=== PATIENT | female | born 1930 | race Caucasian/White ===

== ENCOUNTER 2017-01-03 13:31 | Inpatient (IN) | payer OTHER, BC ==
[2017-01-03] MEDS ORDERED: SODIUM CHLORIDE 500 ML IV ONE (14:13)
--- NOTE | 2017-01-03 14:20 | PDOC ---
History of Present Illness - General History Source: Patient Exam Limitations: No Limitations - History of Present Illness Initial Comments: 01/03/17 15:02 Patient is a 86 year old female with a significant past medical history of HTN, CHF, ITP, CRF, Demented, who was brought by EMS to the ED with complaint of lethargy that began this morning. As per patient's daughter patient's baseline is opened eyes, alert, aware and unable to speak. As per patient's caregiver, patient is not at her baseline mental status. She reports patient has been experiencing chronic sweating, stating the patient is soaked from sweating so much. Patient is Unable to provide hx. Baseline MS - opens eyes. Denies coughing, diarrhea. Denies nausea, vomiting. Denies any other symptoms. Allergies: Donepezil HCl, Memantine HCL. Social history: No smoking. No alcohol. No illicit drugs. Surgical history: No known surgeries PMD: Dr. Zarate <Maximus Olvera - Last Filed: 01/03/17 16:00> <Bree Hernandez - Last Filed: 01/03/17 16:10> - General Chief Complaint: Altered Mental Status Stated Complaint: UNRESPONSIVE Time Seen by Provider: 01/03/17 13:56 Past History <Maximus Olvera - Last Filed: 01/03/17 16:00> - Past Medical History Cancer: Yes (Basal Cell Leg) Cardiac Disorders: Yes (Paroxysmal A. Fib) CVA: Yes CHF: Yes Dementia: Yes Diabetes: Yes Disorders: Yes (UTI) HTN: Yes Seizures: Yes Thyroid Disease: Yes - Surgical History Appendectomy: Yes - Immunization History Immunization Up to Date: Yes - Suicide/Smoking/Psychosocial Hx Smoking Status: No Smoking History: Never smoked Number of Cigarettes Smoked Daily: 0 Hx Alcohol Use: No Drug/Substance Use Hx: No Substance Use Type: None Hx Substance Use Treatment: No <Bree Hernandez - Last Filed: 01/03/17 16:10> - Past Medical History Allergies/Adverse Reactions: Allergies Allergy/AdvReac Type Severity Reaction Status Date / Time donepezil HCl [From Aricept] Allergy Mild Rash Verified 01/03/17 14:31 memantine HCl [From Namenda] Allergy Mild Hives Verified 01/03/17 14:31 Home Medications: Ambulatory Orders Acetaminophen [Acetaminophen Extra Strength] 500 mg PO Q6H PRN #0 tablet Multivitamin [Multivitamins] 1 each PO AM #0 capsule 09/11/11 Raloxifene HCl [Evista] 60 mg PO DAILY #0 tablet 09/11/11 Cyanocobalamin Vit B-12 Inj. [Vitamin B12 Injection -] 1,000 mcg IM PRN #0 vial 11/04/14 Rivastigmine Tartrate [Rivastigmine] 1.5 mg PO BID #0 capsule 11/04/14 Metoprolol Succinate [Toprol XL -] 25 mg PO BID #60 tab.sr.24h 04/03/15 Propylthiouracil 25 mg PO BID #60 tablet 04/03/15 Risperidone [Risperdal -] 0.25 mg PO DAILY tablet 04/03/15 Levetiracetam [Keppra -] 400 mg PO BID 05/17/15 Lisinopril 10 mg PO DAILY 05/17/15 Pregabalin [Lyrica -] 75 mg PO Q12H 05/17/15 Vitamin C 500 mg PO DAILY 05/01/16 Zinc Sulfate 220 mg PO DAILY 05/01/16 Review of Systems - Review of Systems Able to Perform ROS?: No Comments:: 01/03/17 15:02 Unable to obtain ROS. All Other Systems: Reviewed and Negative <Maximus Olvera - Last Filed: 01/03/17 16:00> *Physical Exam - Vital Signs Last Vital Signs Temp Pulse Resp BP Pulse Ox 98.9 F 66 18 112/49 98 01/03/17 13:35 01/03/17 13:35 01/03/17 13:35 01/03/17 13:35 01/03/17 13:50 - Physical Exam Comments: 01/03/17 15:02 GENERAL: No foul smelling diaper. Awake, alert, and fully oriented, in no acute distress HEAD: No signs of trauma EYES: PERRLA, EOMI, sclera anicteric, conjunctiva clear ENT: Auricles normal inspection, hearing grossly normal, nares patent, oropharynx clear without exudates. Moist mucosa NECK: Normal ROM, supple, no lymphadenopathy, JVD, or masses LUNGS: +Lungs transmitted upper airway sounds . Breath sounds equal. No wheezes, and no crackles HEART: Regular rate and rhythm, normal S1 and S2, no murmurs, rubs or gallops ABDOMEN: Soft, nontender, normoactive bowel sounds. No guarding, no rebound. No masses EXTREMITIES: Normal range of motion, no edema. No clubbing or cyanosis. No cords, erythema, or tenderness NEUROLOGICAL: +Nonverbal. +Opens eyes to pain. +Withdraw movements to pain. + Altered mental status. Cranial nerves II through XII grossly intact. normal gait SKIN: Warm, Dry, normal turgor, no rashes or lesions noted. <Maximus Olvera - Last Filed: 01/03/17 16:00> Heart Score/ECG Review - ECG Intrepretation Comment:: 01/03/17 14:19 sinus at 73, nl axis, nl interval, t wave flattening diffusely, no acute st/t wave findings <Bree Hernandez - Last Filed: 01/03/17 16:10> ED Treatment Course - LABORATORY CBC & Chemistry Diagram: 01/03/17 14:25 01/03/17 14:25 - ADDITIONAL ORDERS Additional order review: Laboratory Results 01/03/17 01/03/17 01/03/17 14:56 14:25 13:50 PT with INR 12.10 H INR 1.10 PTT (Actin FS) 28.1 VBG pH 7.32 POC VBG pCO2 46.7 POC VBG pO2 42.2 Mixed VBG HCO3 23.6 Urine Color Mireille Urine Appearance Cloudy Urine pH 5.0 Urine Protein 1+ H Urine Glucose (UA) Negative Urine Ketones Negative Urine Blood Negative Urine Nitrite Negative Urine Bilirubin Negative Urine Urobilinogen 2.0 H 01/03/17 14:25 RBC 4.84 D MCV 93.2 MCHC 31.8 L RDW 13.3 MPV 9.8 D Neutrophils % 68.4 D Lymphocytes % 15.1 D Monocytes % 15.8 H Eosinophils % 0.3 Basophils % 0.4 <Maximus Olvera - Last Filed: 01/03/17 16:00> - LABORATORY CBC & Chemistry Diagram: 01/03/17 14:25 01/03/17 14:25 - RADIOLOGY Radiology Studies Ordered: Category Date Time Status HEAD CT (STROKE) [CT] Stat CT Scan 01/03/17 13:46 Completed CHEST X-RAY PORTABLE* [RAD] Stat Radiology 01/03/17 14:13 Ordered <Bree Hernandez - Last Filed: 01/03/17 16:10> Medical Decision Making - Medical Decision Making 01/03/17 16:[address] latonya Zarate @15:58pm. Awaiting Callback. <Maximus Olvera - Last Filed: 01/03/17 16:00> - Medical Decision Making 01/03/17 14:18 86yo pleasantly demented female sent from [facility] for eval of hypotension and AMS -labs -cultures -cbc, chem, cardiac -ekg -ct head -straight cath for urine -reassess -tie carrier -pt sent by Dr. Zarate - will admit after workup completed. 01/03/17 16:06 pt with mild uti, will start abx and pt with change in MS 01/03/17 16:[address] Zarate, consult placed to Dr. Ochoa, accepts pt to service <Bree Hernandez - Last Filed: 01/03/17 16:10> *DC/Admit/Observation/Transfer - Attestations Scribe Attestion: 01/03/17 15:02 Documentation prepared by Maximus Olvera, acting as medical coding auditor for Bree Hernandez DO. <Maximus Olvera - Last Filed: 01/03/17 16:00> - Discharge Dispostion Admit: Yes - Attestations Physician Attestion: 01/03/17 16:08 I, Dr. Bree Hernandez DO, attest that this document has been prepared under my direction and personally reviewed by me in its entirety. I further attest, that it accurately reflects all work, treatment, procedures and medical decision -making performed by me. <Bree Hernandez - Last Filed: 01/03/17 16:10> Diagnosis at time of Disposition: Change in mental status - Discharge Dispostion Condition at time of disposition: Fair - Referrals Referrals: Latonya Zarate MD [Primary Care Provider] -
[2017-01-03 14:33] LABS: BASOPHIL 0.4 % (0-2.0); EOSINOPHIL 0.3 % (0-4.5); MCH 29.7 pg (25.7-33.7); MCHC 31.8 g/dl (32.0-36.0); MEAN CELL VOLUME 93.2 fl (80-96); MEAN PLT VOLUME 9.8 fl (7.5-11.1); NEUTROPHILS 68.4 % (42.8-82.8); PLATELET COUNT 42 K/MM3 (134-434); RDW 13.3 % (11.6-15.6); WHITE BLOOD COUNT 10.2 K/mm3 (4.0-10.0)
[2017-01-03 14:38] VITALS: BMI 24.8
[2017-01-03 14:47] LABS: INR 1.1 (0.82-1.09); PROTHROMBIN TIME (PATIENT) 12.1 SEC (9.98-11.88)
[2017-01-03 14:50] LABS: ACTIVATED PTT 28.1 SECONDS (26.9-34.4)
[2017-01-03 14:58] LABS: URINE APPEARANCE CLOUDY; URINE BILIRUBIN NEGATIVE (NEGATIVE); URINE BLOOD NEGATIVE (NEGATIVE); URINE COLOR AMBER; URINE GLUCOSE (UA) NEGATIVE (NEGATIVE); URINE KETONE NEGATIVE (NEGATIVE); URINE NITRITE NEGATIVE (NEGATIVE)
[2017-01-03 15:00] LABS: URINE LEUK ESTERASE 1+ (NEGATIVE); URINE PROTEIN 1+ (NEGATIVE)
[2017-01-03 15:01] LABS: VENOUS BLOOD GAS HCO3 23.6 meq/L (19-25); VENOUS PH 7.32 (7.32-7.42)
[2017-01-03 15:02] LABS: URINE BACTERIA RARE /hpf (NONE SEEN); URINE HYALINE CAST 15 /lpf; URINE MUCUS FEW; URINE RBC 1 /hpf (0-3); URINE WBC 11 /hpf (3-5)
[2017-01-03 15:11] LABS: ALBUMIN 3.8 g/dl (3.4-5.0); ANION GAP 12 (8-16); BILIRUBIN,TOTAL 0.5 mg/dL (0.2-1.0); CALCIUM 9.1 mg/dL (8.5-10.1); CO2 22 mmol/L (21-32); CREATININE 0.9 mg/dL (0.55-1.02); GLUCOSE,RANDOM 133 mg/dL (74-106); SGPT/ALT 19 U/L (12-78); TOT PROT 7.5 g/dl (6.4-8.2)
[2017-01-03 15:13] LABS: ALK PHOS 83 U/L (45-117); TROPONIN I < 0.02 ng/ml (0.00-0.05)
[2017-01-03 15:14] LABS: CPK 119 IU/L (26-192); SGOT/AST 25 U/L (15-37)
[2017-01-03] MEDS ORDERED: cefTRIAXone 1 GM/50 ML BAG (PRE-DOCKED) IVPB ONE (15:56)
[2017-01-03] MEDS ORDERED: SODIUM CHLORIDE 0.9% 1000 ML INFUS.BAG IV ONE (16:10)
[2017-01-03] MEDS ORDERED: CEFTRIAXONE 50 ML ONE (16:12)
--- NOTE | 2017-01-03 16:24 | CON.CARD ---
Consult Consult Specialty:: Cardiology Referred by:: Tripp Zarate MD Reason for Consultation:: Altered mental status - History of Present Illness Chief Complaint: Altered mental status History of Present Illness: Patient is a 86 year old female with a significant past medical history of HTN, diastolic failure, ITP, CRF, Dementia, referred for altered mental status, diaphoresis, hypothermia at 96. 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 Baseline MS - opens eyes. Denies coughing, diarrhea. Denies nausea, vomiting. Denies any other symptoms. Allergies: Donepezil HCl, Memantine HCL. Social history: No smoking. No alcohol. No illicit drugs. Surgical history: No known surgeries PMD: Dr. 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: Dementia Cardio/Vascular: Yes: CHF, HTN, Other (PAF) Rheumatology: Yes: Sarcoidosis Endocrine: Yes: Hyperthyroidism Dermatology: Yes: Basal Cell (of LE) - Alcohol/Substance Use Hx Alcohol Use: No - Smoking History Smoking history: Never smoked Aproximately how many cigarettes per day: 0 Home Medications - Allergies Allergies/Adverse Reactions: Allergies Allergy/AdvReac Type Severity Reaction Status Date / Time donepezil HCl [From Aricept] Allergy Mild Rash Verified 01/03/17 14:31 memantine HCl [From Namenda] Allergy Mild Hives Verified 01/03/17 14:31 - Home Medications Home Medications: Ambulatory Orders Acetaminophen [Acetaminophen Extra Strength] 500 mg PO Q6H PRN #0 tablet Multivitamin [Multivitamins] 1 each PO AM #0 capsule 09/11/11 Raloxifene HCl [Evista] 60 mg PO DAILY #0 tablet 09/11/11 Cyanocobalamin Vit B-12 Inj. [Vitamin B12 Injection -] 1,000 mcg IM PRN #0 vial 11/04/14 Rivastigmine Tartrate [Rivastigmine] 1.5 mg PO BID #0 capsule 11/04/14 Metoprolol Succinate [Toprol XL -] 25 mg PO BID #60 tab.sr.24h 04/03/15 Propylthiouracil 25 mg PO BID #60 tablet 04/03/15 Risperidone [Risperdal -] 0.25 mg PO DAILY tablet 04/03/15 Levetiracetam [Keppra -] 400 mg PO BID 05/17/15 Lisinopril 10 mg PO DAILY 05/17/15 Pregabalin [Lyrica -] 75 mg PO Q12H 05/17/15 Vitamin C 500 mg PO DAILY 05/01/16 Zinc Sulfate 220 mg PO DAILY 05/01/16 Review of Systems Unable to obtain ROS, reason: Altered mental status Vital Signs: Vital Signs Temperature 98.9 F 01/03/17 13:35 Pulse Rate 64 01/03/17 16:20 Respiratory Rate 14 01/03/17 16:20 Blood Pressure 119/50 01/03/17 16:20 O2 Sat by Pulse Oximetry (%) 96 01/03/17 16:20 Constitutional: Yes: No Distress, Calm Neck: Yes: Supple Respiratory: Yes: Regular, Diminished, On Nasal O2 Gastrointestinal: Yes: Normal Bowel Sounds, Soft Cardiovascular: Yes: Regular Rate and Rhythm JVD: No Carotid Bruit: No Heart Sounds: Yes: S1, S2 Murmur: Yes: Systolic Murmur, Grade 1 Edema: No - Other Data Labs, Other Data: CBC, BMP 01/03/17 14:25 01/03/17 14:25 INR, PTT INR 1.10 (0.82-1.09) 01/03/17 14:25 Troponin, BNP 01/03/17 14:25 Troponin I < 0.02 Troponin, BNP 01/03/17 14:25 Troponin I < 0.02 Imaging - Results Chest X-ray: Report Reviewed (RUL ATX) Cat Scan: Report Reviewed (No new stroke or bleed) Problem List - Problems (1) Change in mental status Code(s): R41.82 - ALTERED MENTAL STATUS, UNSPECIFIED Qualifiers: Altered mental status type: somnolence Qualified Code(s): R40.0 - Somnolence; R40.0 - Somnolence (2) Thrombocytopenia Code(s): D69.6 - THROMBOCYTOPENIA, UNSPECIFIED (3) Atrial fibrillation Code(s): I48.91 - UNSPECIFIED ATRIAL FIBRILLATION Qualifiers: Atrial fibrillation type: paroxysmal Qualified Code(s): I48.0 - Paroxysmal atrial fibrillation; I48.0 - Paroxysmal atrial fibrillation; I48.0 - Paroxysmal atrial fibrillation; I48.0 - Paroxysmal atrial fibrillation (4) Coronary artery disease Code(s): I25.10 - ATHSCL HEART DISEASE OF [place] CORONARY ARTERY W/O ANG PCTRS Qualifiers: Coronary Disease-Associated Artery/Lesion type: [place] artery [place] vs. transplanted heart: [place] heart Associated angina: without angina Qualified Code(s): I25.10 - Atherosclerotic heart disease of [place] coronary artery without angina pectoris; I25.10 - Atherosclerotic heart disease of [place] coronary artery without angina pectoris; I25.10 - Atherosclerotic heart disease of [place] coronary artery without angina pectoris (5) Dementia Code(s): F03.90 - UNSPECIFIED DEMENTIA WITHOUT BEHAVIORAL DISTURBANCE Qualifiers: Dementia type: unspecified type (6) Sarcoidosis Code(s): D86.9 - SARCOIDOSIS, UNSPECIFIED (7) Lactic acidosis Code(s): E87.2 - ACIDOSIS Assessment/Plan 11/04/2014 Echocardiogram shows normal LV fxn with mild MR, TR 1. Altered mental status, hypothermia and diaphoresis r/o occult sepsis 2. H/o neurocardiogenic syncope 3. CAD, angina pectoris 4. LV diastolic dysfunction with h/o failure 5. Paroxysmal atrial fibrillation->sinus rhythm on no anticoagulation due to chronic thrombocytopenia 6. Hypertension 7. Hyperthyroidism 8. Sarcoidosis 9. Dementia 10. Chronic thrombocytopenia P: 1. Abx course per C&S, check TSH, ruling out for DE 2. Continue Toprol XL 50 qd, lisinopril 10 qd 3. DVT and GI prophylaxis 4. Thank you for consultative opportunity
--- NOTE | 2017-01-03 17:33 | HP ---
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 Pt was alert, SBP 90 (in wheelchair), Temp 96, O2 sat 92 % on RA. Pt was placed in bed at reevaluated; pt was not awake, not arousable, SBP 88, O2 sat 88% on RA; pt was transferred to ER via 911. 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 Cardiovascular: Yes: CHF, HTN, Other (PAF- ot on AC) Heme/Onc: Yes: Thrombocytopenia Rheumatology: Yes: Sarcoidosis Endocrine: Yes: Hyperthyroidism Dermatology: Yes: Basal Cell (of LE) - Smoking History Smoking history: Never smoked Aproximately how many cigarettes per day: 0 - Alcohol/Substance Use Hx Alcohol Use: No Home Medications - Allergies Allergies/Adverse Reactions: Allergies Allergy/AdvReac Type Severity Reaction Status Date / Time donepezil HCl [From Aricept] Allergy Mild Rash Verified 01/03/17 14:31 memantine HCl [From Namenda] Allergy Mild Hives Verified 01/03/17 14:31 - Home Medications Home Medications: Ambulatory Orders Acetaminophen [Acetaminophen Extra Strength] 500 mg PO Q6H PRN #0 tablet Multivitamin [Multivitamins] 1 each PO AM #0 capsule 09/11/11 Raloxifene HCl [Evista] 60 mg PO DAILY #0 tablet 09/11/11 Cyanocobalamin Vit B-12 Inj. [Vitamin B12 Injection -] 1,000 mcg IM PRN #0 vial 11/04/14 Rivastigmine Tartrate [Rivastigmine] 1.5 mg PO BID #0 capsule 11/04/14 Metoprolol Succinate [Toprol XL -] 25 mg PO BID #60 tab.sr.24h 04/03/15 Propylthiouracil 25 mg PO BID #60 tablet 04/03/15 Risperidone [Risperdal -] 0.25 mg PO DAILY tablet 04/03/15 Levetiracetam [Keppra -] 400 mg PO BID 05/17/15 Lisinopril 10 mg PO DAILY 05/17/15 Pregabalin [Lyrica -] 75 mg PO Q12H 05/17/15 Vitamin C 500 mg PO DAILY 05/01/16 Zinc Sulfate 220 mg PO DAILY 05/01/16 Review of Systems Unable to obtain ROS, reason: secondary to dementia Physical Examination Vital Signs: Vital Signs Temperature 98.9 F 01/03/17 13:35 Pulse Rate 64 01/03/17 16:20 Respiratory Rate 14 01/03/17 16:20 Blood Pressure 119/50 01/03/17 16:20 O2 Sat by Pulse Oximetry (%) 96 01/03/17 16:20 Findings/Remarks: pt received 1 L NS. PE is limitted by pt's lack of cooperation. Constitutional: Yes: No Distress, Calm, Other (awake) Eyes: Yes: Conjunctiva Clear HENT: Yes: Atraumatic. No: Epistaxis, Nasal Congestion, Rhinnorhea Neck: No: Lymphadenopathy Cardiovascular: Yes: Regular Rate and Rhythm, S1, S2 Respiratory: Yes: Regular, CTA Bilaterally, Diminished, Other (decreased inspiratory effort) Gastrointestinal: Yes: Normal Bowel Sounds, Soft. No: Palpable Mass ...Rectal Exam: Yes: Deferred Musculoskeletal: No: Joint Stiffness, Joint Swelling Extremities: No: Cool, Cyanosis Edema: No Integumentary: No: Bruising Neurological: Yes: Alert Labs: noted Imaging - Results Chest X-ray: Report Reviewed Cat Scan: Report Reviewed Problem List - Problems (1) Hypotension Code(s): I95.9 - HYPOTENSION, UNSPECIFIED Qualifiers: Hypotension type: unspecified hypotension type Qualified Code(s): I95.9 - Hypotension, unspecified; I95.9 - Hypotension, unspecified (2) Hypoxemia Code(s): R09.02 - HYPOXEMIA (3) Change in mental status Code(s): R41.82 - ALTERED MENTAL STATUS, UNSPECIFIED Qualifiers: Altered mental status type: somnolence Qualified Code(s): R40.0 - Somnolence; R40.0 - Somnolence (4) UTI (urinary tract infection) Code(s): N39.0 - URINARY TRACT INFECTION, SITE NOT SPECIFIED Qualifiers: Urinary tract infection type: acute cystitis Hematuria presence: with hematuria Qualified Code(s): N30.01 - Acute cystitis with hematuria; N30.01 - Acute cystitis with hematuria (5) Dementia Code(s): F03.90 - UNSPECIFIED DEMENTIA WITHOUT BEHAVIORAL DISTURBANCE Qualifiers: Dementia type: unspecified type (6) PAF (paroxysmal atrial fibrillation) Code(s): I48.0 - PAROXYSMAL ATRIAL FIBRILLATION (7) Lactic acidosis Code(s): E87.2 - ACIDOSIS (8) Thrombocytopenia Code(s): D69.6 - THROMBOCYTOPENIA, UNSPECIFIED (9) Abnormal chest xray Code(s): R93.8 - ABNORMAL FINDINGS ON DIAGNOSTIC IMAGING OF BODY STRUCTURES (10) Sepsis Assessment/Plan: to f/u UCX, BCX cont IV abtx Code(s): A41.9 - SEPSIS, UNSPECIFIED ORGANISM Assessment/Plan Admit to Telemetry Serial CE. Cardio Consult. Monitor UCX, BCX AM labs IVF IV abtx Repeat CXR in AM Case was d/w pt's dg (from [place] -over the phone- and in the hospital- at bedside)
[2017-01-03] MEDS: DEXTROSE 5%-NORMAL SALINE 1,000 ML IV SCH (18:23)
[2017-01-03] MEDS ORDERED: METOPROLOL TARTRATE 25 MG TABLET (FP) PO SCH (22:00)
[2017-01-03] MEDS ORDERED: levETIRAcetam 250 MG TABLET (FP) PO SCH (22:00)
[2017-01-03] MEDS: levETIRAcetam 500 MG/5 ML ORAL SOLUTION (UNIT-DOSE CUPS) PO SCH (22:02)
[2017-01-03] MEDS: PROPYLTHIOURACIL 50 MG TABLET (UD) PO SCH (22:03)
[2017-01-03] MEDS: HEPARIN NA (PORCINE) 5,000 UNITS/ML 1ML VIAL SQ SCH (22:27)
[2017-01-04 07:21] LABS: MCH 30.5 pg (25.7-33.7); MCHC 33.1 g/dl (32.0-36.0); MEAN CELL VOLUME 92.1 fl (80-96); MEAN PLT VOLUME 10.3 fl (7.5-11.1); RDW 13.1 % (11.6-15.6); WHITE BLOOD COUNT 5.2 K/mm3 (4.0-10.0)
[2017-01-04 07:50] LABS: PLATELET COUNT 35 K/MM3 (134-434)
[2017-01-04 08:08] LABS: CPK 64 IU/L (26-192)
[2017-01-04 08:09] LABS: TROPONIN I < 0.02 ng/ml (0.00-0.05)
[2017-01-04 08:17] LABS: ALK PHOS 60 U/L (45-117); ANION GAP 7 (8-16); BILIRUBIN,TOTAL 0.3 mg/dL (0.2-1.0); CALCIUM 8.1 mg/dL (8.5-10.1); CO2 24 mmol/L (21-32); CREATININE 0.6 mg/dL (0.55-1.02); GLUCOSE,RANDOM 102 mg/dL (74-106); SGOT/AST 13 U/L (15-37); SGPT/ALT 15 U/L (12-78); TOT PROT 6.1 g/dl (6.4-8.2)
[2017-01-04] MEDS ORDERED: cefTRIAXone SODIUM 1 GM VIAL ONE (08:41)
[2017-01-04] MEDS ORDERED: PT OWN MED DRAWER 7, Y5N ONE ×2 (08:41→22:42)
[2017-01-04] MEDS ORDERED: DEXTROSE 5%-WATER - 50 ML IVPB ONE (08:41)
[2017-01-04] MEDS: METOPROLOL TARTRATE 25 MG TABLET (FP) PO SCH ×2 (09:20→23:01)
[2017-01-04] MEDS: HEPARIN NA (PORCINE) 5,000 UNITS/ML 1ML VIAL SQ SCH ×2 (09:20→23:01)
[2017-01-04] MEDS: levETIRAcetam 500 MG/5 ML ORAL SOLUTION (UNIT-DOSE CUPS) PO SCH ×2 (09:20→23:01)
[2017-01-04] MEDS: PROPYLTHIOURACIL 50 MG TABLET (UD) PO SCH ×2 (09:21→23:01)
--- NOTE | 2017-01-04 09:40 | PN ---
Progress Note, Physician Chief Complaint: Events noted Appears comfortable with underlying organic brain syndrome History of Present Illness: Patient was seen and examined. Awake. Chart was reviewed Not in distress - Current Medication List Current Medications: Active Medications Heparin Sodium (Porcine) (Heparin -) 5,000 unit SQ BID [facility] Last Admin: 01/04/17 09:20 Dose: 5,000 unit Dextrose/Sodium Chloride (D5-Ns -) 1,000 mls @ 50 mls/hr IV ASDIR [facility] Last Admin: 01/03/17 18:23 Dose: 50 mls/hr Ceftriaxone Sodium 1 gm/ (Dextrose) 50 mls @ 100 mls/hr IVPB DAILY [facility] Last Admin: 01/04/17 09:20 Dose: 100 mls/hr Influenza Virus Vaccine Quadrival (Flulaval Quad [id number]) 60 mcg IM .ONCE ONE Stop: 01/04/17 10:01 Last Admin: 01/04/17 09:22 Dose: 60 mcg Levetiracetam (Keppra Oral Solution -) 400 mg PO BID [facility] Last Admin: 01/04/17 09:20 Dose: 400 mg Metoprolol Tartrate (Lopressor -) 25 mg PO BID [facility] Last Admin: 01/04/17 09:20 Dose: 25 mg Propylthiouracil (Ptu -) 25 mg PO BID [facility] Last Admin: 01/04/17 09:21 Dose: 25 mg - Objective Vital Signs: Vital Signs Temperature 98 F 01/04/17 08:30 Pulse Rate 66 01/04/17 08:30 Respiratory Rate 16 01/04/17 08:30 Blood Pressure 144/62 01/04/17 08:30 O2 Sat by Pulse Oximetry (%) 96 01/03/17 16:20 Neck: Yes: Supple Cardiovascular: Yes: Regular Rate and Rhythm, S1, S2 Respiratory: Yes: Diminished Gastrointestinal: Yes: Normal Bowel Sounds, Soft. No: Tenderness Edema: No Labs: CBC, BMP 01/04/17 05:15 01/04/17 05:15 INR, PTT INR 1.10 (0.82-1.09) 01/03/17 14:25 Problem List - Problems (1) Change in mental status Code(s): R41.82 - ALTERED MENTAL STATUS, UNSPECIFIED Qualifiers: Altered mental status type: somnolence Qualified Code(s): R40.0 - Somnolence; R40.0 - Somnolence (2) Hypotension Code(s): I95.9 - HYPOTENSION, UNSPECIFIED Qualifiers: Hypotension type: unspecified hypotension type Qualified Code(s): I95.9 - Hypotension, unspecified; I95.9 - Hypotension, unspecified (3) PAF (paroxysmal atrial fibrillation) Code(s): I48.0 - PAROXYSMAL ATRIAL FIBRILLATION (4) Hypothyroid Code(s): E03.9 - HYPOTHYROIDISM, UNSPECIFIED Qualifiers: Hypothyroidism type: unspecified Qualified Code(s): E03.9 - Hypothyroidism, unspecified; E03.9 - Hypothyroidism, unspecified; E03.9 - Hypothyroidism, unspecified (5) Syncope Code(s): R55 - SYNCOPE AND COLLAPSE Qualifiers: Syncope type: unspecified Qualified Code(s): R55 - Syncope and collapse ; R55 - Syncope and collapse (6) Thrombocytopenia Code(s): D69.6 - THROMBOCYTOPENIA, UNSPECIFIED (7) Coronary artery disease Code(s): I25.10 - ATHSCL HEART DISEASE OF [place] CORONARY ARTERY W/O ANG PCTRS Qualifiers: Coronary Disease-Associated Artery/Lesion type: [place] artery [place] vs. transplanted heart: [place] heart Associated angina: without angina Qualified Code(s): I25.10 - Atherosclerotic heart disease of [place] coronary artery without angina pectoris; I25.10 - Atherosclerotic heart disease of [place] coronary artery without angina pectoris; I25.10 - Atherosclerotic heart disease of [place] coronary artery without angina pectoris (8) Dementia Code(s): F03.90 - UNSPECIFIED DEMENTIA WITHOUT BEHAVIORAL DISTURBANCE Qualifiers: Dementia type: unspecified type (9) Sarcoidosis Code(s): D86.9 - SARCOIDOSIS, UNSPECIFIED Assessment/Plan 1. Altered mental status, hypothermia and diaphoresis rule out sepsis 2. History of neurocardiogenic syncope 3. CAD, angina pectoris 4. LV diastolic dysfunction with history of failure 5. Paroxysmal atrial fibrillation now in sinus rhythm on no anticoagulation due to chronic thrombocytopenia 6. Hypertension 7. Hyperthyroidism 8. Sarcoidosis 9. Organic brain syndrome/Dementia 10. Chronic thrombocytopenia PLAN: 1. Continue antibiotic course 2. Continue Toprol XL and Lisinopril 3. DVT and GI prophylaxis Further plans are to follow Adan Castillo MD
[2017-01-04] MEDS ORDERED: CEFTRIAXONE 1 GM in DEXTROSE 5%-WATER - 50 ML IVPB SCH ×3 (10:00)
[2017-01-04] MEDS ORDERED: FLU VACCINE QUAD 60 MCG/0.5 ML (MDV 17-18) IM ONE (10:00)
--- NOTE | 2017-01-04 10:33 | PN ---
Progress Note, Physician History of Present Illness: Pt with dementia, at baseline cannot answer questions. 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 - Current Medication List Current Medications: Active Medications Heparin Sodium (Porcine) (Heparin -) 5,000 unit SQ BID [facility] Last Admin: 01/04/17 09:20 Dose: 5,000 unit Dextrose/Sodium Chloride (D5-Ns -) 1,000 mls @ 50 mls/hr IV ASDIR [facility] Last Admin: 01/03/17 18:23 Dose: 50 mls/hr Ceftriaxone Sodium 1 gm/ (Dextrose) 50 mls @ 100 mls/hr IVPB DAILY [facility] Last Admin: 01/04/17 09:20 Dose: 100 mls/hr Levetiracetam (Keppra Oral Solution -) 400 mg PO BID [facility] Last Admin: 01/04/17 09:20 Dose: 400 mg Metoprolol Tartrate (Lopressor -) 25 mg PO BID [facility] Last Admin: 01/04/17 09:20 Dose: 25 mg Propylthiouracil (Ptu -) 25 mg PO BID [facility] Last Admin: 01/04/17 09:21 Dose: 25 mg - Objective Vital Signs: Vital Signs Temperature 98 F 01/04/17 08:30 Pulse Rate 66 01/04/17 08:30 Respiratory Rate 16 01/04/17 08:30 Blood Pressure 144/62 01/04/17 08:30 O2 Sat by Pulse Oximetry (%) 96 01/03/17 16:20 Constitutional: Yes: No Distress, Calm Cardiovascular: Yes: Regular Rate and Rhythm, S1, S2 Respiratory: Yes: Regular, CTA Bilaterally, Diminished. No: Rales Gastrointestinal: Yes: Normal Bowel Sounds, Soft. No: Palpable Mass Edema: No Neurological: Yes: Alert Labs: CBC, BMP 01/04/17 05:15 01/04/17 05:15 INR, PTT INR 1.10 (0.82-1.09) 01/03/17 14:25 - ....Imaging Chest X-ray: Report Reviewed, Image Reviewed Problem List - Problems (1) Hypotension Code(s): I95.9 - HYPOTENSION, UNSPECIFIED Qualifiers: Hypotension type: unspecified hypotension type Qualified Code(s): I95.9 - Hypotension, unspecified; I95.9 - Hypotension, unspecified (2) Hypoxemia Code(s): R09.02 - HYPOXEMIA (3) Change in mental status Code(s): R41.82 - ALTERED MENTAL STATUS, UNSPECIFIED Qualifiers: Altered mental status type: somnolence Qualified Code(s): R40.0 - Somnolence; R40.0 - Somnolence (4) UTI (urinary tract infection) Code(s): N39.0 - URINARY TRACT INFECTION, SITE NOT SPECIFIED Qualifiers: Urinary tract infection type: acute cystitis Hematuria presence: with hematuria Qualified Code(s): N30.01 - Acute cystitis with hematuria; N30.01 - Acute cystitis with hematuria (5) Dementia Code(s): F03.90 - UNSPECIFIED DEMENTIA WITHOUT BEHAVIORAL DISTURBANCE Qualifiers: Dementia type: unspecified type (6) PAF (paroxysmal atrial fibrillation) Code(s): I48.0 - PAROXYSMAL ATRIAL FIBRILLATION (7) Lactic acidosis Code(s): E87.2 - ACIDOSIS (8) Thrombocytopenia Code(s): D69.6 - THROMBOCYTOPENIA, UNSPECIFIED (9) Abnormal chest xray Code(s): R93.8 - ABNORMAL FINDINGS ON DIAGNOSTIC IMAGING OF BODY STRUCTURES (10) Sepsis Assessment/Plan: Unclear source: Urine +/ PNA. Pulmonary consult Pt is improving on Rocephine and IVF. Would cont RX and F/u BCX and UCX Code(s): A41.9 - SEPSIS, UNSPECIFIED ORGANISM (11) PNA (pneumonia) Assessment/Plan: Possible. PUlmonary consult. Code(s): J18.9 - PNEUMONIA, UNSPECIFIED ORGANISM Assessment/Plan Admitted to Telemetry Serial CE negative. Cardio Consult appreciated, case was d/w Dr. Soto.. Monitor UCX, BCX AM labs IVF IV abtx Pulmonary consult
--- NOTE | 2017-01-04 12:35 | CONSULT ---
Consultation: PULMONARY CONSULT CONSULT REQUEST: We have been asked to medically evaluate this patient for ( ABNORMAL CXR) HISTORY OF PRESENT ILLNESS: Ms. Nickerson is an 86yo F with PMHx of Advanced Dementia, CHF, ITP, Sarcoidosis who presented from [facility] with AMS. Patient's mental baseline is awake, alert, non-responsive. History was obtained from daughter who was at bedside. Daughter states that yesterday the 24 hour home day care home provider noted that the patient was in her chair, profusely diaphoretic. At that time SBP was in the 90s, Temp 96, and O2 92% on RA. At the time, patient was awake, alert, baseline mental status. She was brought to the bed. The patient was re-evaluated , SBP was 88, O2 sat 88% on RA, and non-arousable. In the ER, the patient was lethargic, VSS, trops negative x2. CT head showed no acute IC pathology. She had notable WBC count with lactic acidosis. UA showed 11WBC and patient was started on IVF and Rocefin 1g on basis of UTI. CXR on admission showed RUL atelectasis. During the hospitalization, the patient's mental status markedly improved, and she is currently at baseline. Her VS continue to be stable. WBC and lactic acid have normalized. Repeat CXR shows RUL consolidation. As per daughter, patient has no CP or difficulty breathing. She has intermittent minimal cough. The patient does sleep on her back when sleeping. She is a never-smoker. REVIEW OF SYSTEMS: Unable to be obtained PHYSICAL EXAMINATION Vital Signs Temperature 98 F 01/04/17 08:30 Pulse Rate 66 01/04/17 08:30 Respiratory Rate 16 01/04/17 09:00 Blood Pressure 144/62 01/04/17 08:30 O2 Sat by Pulse Oximetry (%) 96 01/04/17 09:00 GEN: Awake, alert, not oriented, not responsive to questions (at baseline) HEENT: PERRLA, not cooperative with EOM CV: S1, S2, RRR LUNG: Difficult to assess due to position, grossly clear ABD: Soft, NT, ND MSK: No edema, no erythema Laboratory Last Values WBC 5.2 K/mm3 (4.0-10.0) D 01/04/17 05:15 RBC 3.77 M/mm3 (3.60-5.2) D 01/04/17 05:15 Hgb 11.5 GM/dL (10.7-15.3) D 01/04/17 05:15 Hct 34.7 % (32.4-45.2) D 01/04/17 05:15 MCV 92.1 fl (80-96) 01/04/17 05:15 MCH 30.5 pg (25.7-33.7) 01/04/17 05:15 MCHC 33.1 g/dl (32.0-36.0) 01/04/17 05:15 RDW 13.1 % (11.6-15.6) 01/04/17 05:15 Plt Count 35 K/MM3 (134-434) L* 01/04/17 05:15 MPV 10.3 fl (7.5-11.1) 01/04/17 05:15 Neutrophils % 68.4 % (42.8-82.8) D 01/03/17 14:25 Lymphocytes % 15.1 % (8-40) D 01/03/17 14:25 Monocytes % 15.8 % (3.8-10.2) H 01/03/17 14:25 Eosinophils % 0.3 % (0-4.5) 01/03/17 14:25 Basophils % 0.4 % (0-2.0) 01/03/17 14:25 PT with INR 12.10 SEC (9.98-11.88) H 01/03/17 14:25 INR 1.10 (0.82-1.09) 01/03/17 14:25 PTT (Actin FS) 28.1 SECONDS (26.9-34.4) 01/03/17 14:25 VBG pH 7.32 (7.32-7.42) 01/03/17 14:56 POC VBG pCO2 46.7 mmHg (38-52) 01/03/17 14:56 POC VBG pO2 42.2 mmHg (28-48) 01/03/17 14:56 Mixed VBG HCO3 23.6 meq/L (19-25) 01/03/17 14:56 Sodium 142 mmol/L (136-145) 01/04/17 05:15 Potassium 3.7 mmol/L (3.5-5.1) 01/04/17 05:15 Chloride 111 mmol/L (98-107) H 01/04/17 05:15 Carbon Dioxide 24 mmol/L (21-32) 01/04/17 05:15 Anion Gap 7 (8-16) L 01/04/17 05:15 BUN 24 mg/dL (7-18) H 01/04/17 05:15 Creatinine 0.6 mg/dL (0.55-1.02) D 01/04/17 05:15 Creat Clearance w eGFR > 60 (>60) 01/04/17 05:15 Random Glucose 102 mg/dL (74-106) D 01/04/17 05:15 Lactic Acid 1.5 mmol/L (0.4-2.0) 01/04/17 05:15 Calcium 8.1 mg/dL (8.5-10.1) L 01/04/17 05:15 Total Bilirubin 0.3 mg/dL (0.2-1.0) D 01/04/17 05:15 AST 13 U/L (15-37) L D 01/04/17 05:15 ALT 15 U/L (12-78) D 01/04/17 05:15 Alkaline Phosphatase 60 U/L (45-117) D 01/04/17 05:15 Creatine Kinase 64 IU/L (26-192) 01/04/17 05:15 Troponin I < 0.02 ng/ml (0.00-0.05) 01/04/17 05:15 Total Protein 6.1 g/dl (6.4-8.2) L 01/04/17 05:15 Albumin 3.0 g/dl (3.4-5.0) L D 01/04/17 05:15 Urine Color [place] 01/03/17 13:50 Urine Appearance Cloudy 01/03/17 13:50 Urine pH 5.0 (5.0-8.0) 01/03/17 13:50 Ur Specific [place] 1.020 (1.005-1.025) 01/03/17 13:50 Urine Protein 1+ (NEGATIVE) H 01/03/17 13:50 Urine Glucose (UA) Negative (NEGATIVE) 01/03/17 13:50 Urine Ketones Negative (NEGATIVE) 01/03/17 13:50 Urine Blood Negative (NEGATIVE) 01/03/17 13:50 Urine Nitrite Negative (NEGATIVE) 01/03/17 13:50 Urine Bilirubin Negative (NEGATIVE) 01/03/17 13:50 Urine Urobilinogen 2.0 mg/dL (0.2-1.0) H 01/03/17 13:50 Urine RBC 1 /hpf (0-3) 01/03/17 13:50 Urine WBC 11 /hpf (3-5) 01/03/17 13:50 Ur Epithelial Cells Rare /hpf (FEW) 01/03/17 13:50 Urine Bacteria Rare /hpf (NONE SEEN) 01/03/17 13:50 Hyaline Casts 15 /lpf 01/03/17 13:50 Urine Mucus Few 01/03/17 13:50 Blood Type O POSITIVE 01/03/17 14:25 Antibody Screen Negative 01/03/17 14:25 Active Medications Generic Name Dose Route Start Last Admin Trade Name Freq PRN Reason Stop Dose Admin Heparin Sodium (Porcine) 5,000 unit 01/03/17 22:00 01/04/17 09:20 Heparin - SQ 5,000 unit BID [facility] Administration Dextrose/Sodium Chloride 1,000 mls @ 50 mls/hr 01/03/17 18:15 01/03/17 18:23 D5-Ns - IV 50 mls/hr ASDIR [facility] Administration Ceftriaxone Sodium 1 gm/ 50 mls @ 100 mls/hr 01/04/17 10:00 01/04/17 09:20 Dextrose IVPB 100 mls/hr DAILY [facility] Administration Levetiracetam 400 mg 01/03/17 22:00 01/04/17 09:20 Keppra Oral Solution - PO 400 mg BID [facility] Administration Metoprolol Tartrate 25 mg 01/04/17 10:00 01/04/17 09:20 Lopressor - PO 25 mg BID [facility] Administration Propylthiouracil 25 mg 01/03/17 22:00 01/04/17 09:21 Ptu - PO 25 mg BID [facility] Administration CXR - reviewed. RUL consolidation ASSESSMENT/PLAN: Ms. Nickerson is an 86yo F with PMHx of Advanced Dementia, CHF, ITP, Sarcoidosis who presented from [facility] with AMS. # RUL Pneumonia - resolving - Due to dementia status + flat position at night + marked improvement, likely secondary to aspiration vs less likely HCAP - Changed abx to Levaquin to improve anaerobic coverage - EKG in AM to assess QTc - Dysphagia puree diet with S&S eval - Continue HOB elevation Will discuss w/ Dr Cha. Thank you for this consultation. Will follow Kenzie Moody MD - PGY1 Visit type - Emergency Visit Emergency Visit: No - New Patient This patient is new to me today: Yes Date on this admission: 01/04/17 - Critical Care Critical Care patient: No
--- NOTE | 2017-01-04 14:08 | PN ---
Teaching Attending Note Name of Resident: Kenzie Moody ATTENDING PHYSICIAN STATEMENT I saw and evaluated the patient. I reviewed the resident's note and discussed the case with the resident. I agree with the resident's findings and plan as documented. ASSESSMENT AND PLAN: Pneumonia Sepsis CAD LV Diastolic Dysfunction Paroxysmal Atrial Fibrillation Sarcoidosis Chronic Thrombocytopenia - continue antibiotics, would change to levaquin 500mg IVPB daily - f/u cultures - aspiration precautions - swallow eval - outpt f/u of chest CXR to ensure resolution - DVT prophylaxis Thank you for this consult Paulino Cha MD
--- NOTE | 2017-01-04 14:18 | EKG ---
Test Reason : Blood Pressure : / mmHG Vent. Rate : 073 BPM Atrial Rate : 073 BPM P-R Int : 192 ms QRS Dur : 066 ms QT Int : 436 ms P-R-T Axes : 062 009 077 degrees QTc Int : 480 ms NORMAL SINUS RHYTHM CANNOT RULE OUT INFERIOR INFARCT (CITED ON OR BEFORE 02-NOV-2014) CANNOT RULE OUT ANTERIOR INFARCT , AGE UNDETERMINED ABNORMAL ECG WHEN COMPARED WITH ECG OF 01-APR-2015 13:15, MS INTERVAL HAS DECREASED Confirmed by FRANCESCA PATHAK MD ([id number]) on 01/04/2017 2:18:41 PM Referred By: Confirmed By:FRANCESCA PATHAK MD
[2017-01-04] MEDS: LEVOFLOXACIN 750 MG IVPB 150 ML IVPB SCH (15:00)
--- NOTE | 2017-01-04 15:09 | CONSULT ---
Admitting History and Physical - Primary Care Physician PCP: Tripp Zarate - Admission History of Present Illness: Per EMR: 86yo F with PMH of Advanced Dementia, CHF, ITP, Sarcoidosis who presented from [facility] with AMS. Pulmonary imp: RUL Pneumonia - resolving - Due to dementia status + flat position at night + marked improvement, likely secondary to aspiration vs less likely HCAP - Changed abx to Levaquin to improve anaerobic coverage - EKG in AM to assess QTc - Dysphagia puree diet with S&S eval - Continue HOB elevation Pt is on a dys pureed diet and thin liquid at [facility], OOB all day, fed by private CLOUD SUBJECT MATTER EXPERT. She reports no coughing during mealtime at [facility]. Selected Entries 01/03/17 01/03/17 01/03/17 13:35 18:15 19:00 Temperature 98.9 F 98 F 97.4 F L 01/04/17 01/04/17 03:23 08:30 Temperature 98.3 F 98 F Laboratory Tests 01/03/17 01/04/17 14:25 05:15 WBC 10.2 H D 5.2 D History Source: Family Member, Medical Record Limitations to Obtaining History: Dementia - Past Medical History HAIR STYLIST: Yes: Dementia Cardiovascular: Yes: CHF, HTN, Other (PAF- ot on AC) Heme/Onc: Yes: Thrombocytopenia Rheumatology: Yes: Sarcoidosis Endocrine: Yes: Hyperthyroidism Dermatology: Yes: Basal Cell (of LE) - Advance Directives Advance Directives: Yes: DNR - Smoking History Smoking history: Never smoked Aproximately how many cigarettes per day: 0 - Alcohol/Substance Use Hx Alcohol Use: No History - Admission Reason For Visit: AMS - Diagnostics X-ray: Report Reviewed (Progressive atelectasis/infiltrate RUL) - General Mental Status: Awake and Alert, Confused Attention: Moderate Impairment Ability to Follow Directions: Poor Head/Neck Control: Fair - Hearing Hearing: Functional Speech Evaluation - Communication Primary Language: [place] Communication: Yes: Non-Communicable Oral Expression Ability: Yes: Non-Verbal - Speech Production Apraxia: Yes Able to Make Needs Known: Yes: Severely Impaired Intelligibility: Yes: Severely Impaired - Language/Auditory Comprehension Observation: Able to respond to yes/no queries: No, Comprehends Conversational Speech: No - Language/Verbal Expression Able to Respond to Simple Queries: Yes: Severely Impaired Able to Communicate Wants and Needs: Yes: Severely Impaired Functional Communication Status: Yes: Severely Impaired - Memory/Perception 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 Memory: Yes: Severely Impaired Short Term Memory: Yes: Severely Impaired - Swallow Evaluation/Bedside Assessment Current Nutritional Intake: Dysphagia Pureed, Honey Textured Liquids Oral Secretions: Yes: WFL Laryngeal Movement: Able to Palpate, Labored,delay initiation Needs Assistance: Yes Rate of Intake: Slow/Holding Bolus Size: Small Labial Seal: Impaired Bilaterally Oral Prep Time: Increased A-P Transit: Impaired Timing of Swallow: Delayed Coughing/Throat Clear: No Change in Voice: No Recommendations - Speech Evaluation, Impression/Plan Impression: Mild to Moderate oral pharyngeal dysphagia with delatyed swallow with fair laryngeal excursion and VOM. Risk of aspiration, however, overtly pt can tolerate puree, thick, and single sips of thin liquid - Dysphagia Impressions/Plan Swallowing Skills: Impaired Dysphagia Impressions: Mild Impairment, Moderate Impairment, Risk of Aspiration *Silent aspiration: cannot be R/O at bedside Dysphagia Treatment Plan: Small Bites, Chin Tuck/Down, Clear Pocket Food, Trial Feedings, 1/2 tsp. at a time, Elevate HOB during feed (HOB elevated at all times.), Other (Private CLOUD SUBJECT MATTER EXPERT to feed pt, slowly, 1/2 tsp at a time.) Recommendations: Other (Monitor PO tolerance) - Recommendations Diet Consistency: Dysphagia Pureed Medication Administration: Crushed with applesauce Liquids: [place] Thick (on a tsp.) Supplement: Ensure Pudding, Other (ensure compact)
[2017-01-04] MEDS: DEXTROSE 5%-NORMAL SALINE 1,000 ML IV SCH (19:03)
[2017-01-05 07:14] LABS: MCH 30.2 pg (25.7-33.7); MCHC 32.8 g/dl (32.0-36.0); MEAN CELL VOLUME 91.9 fl (80-96); MEAN PLT VOLUME 10.9 fl (7.5-11.1); RDW 12.9 % (11.6-15.6); WHITE BLOOD COUNT 4.5 K/mm3 (4.0-10.0)
[2017-01-05 07:31] LABS: ALBUMIN 2.9 g/dl (3.4-5.0); ANION GAP 9 (8-16); BILIRUBIN,TOTAL 0.6 mg/dL (0.2-1.0); CALCIUM 7.8 mg/dL (8.5-10.1); CO2 22 mmol/L (21-32); CREATININE 0.5 mg/dL (0.55-1.02); GLUCOSE,RANDOM 105 mg/dL (74-106); SGOT/AST 15 U/L (15-37); SGPT/ALT 14 U/L (12-78); TOT PROT 6.4 g/dl (6.4-8.2)
[2017-01-05 07:32] LABS: ALK PHOS 62 U/L (45-117)
[2017-01-05 07:44] LABS: PLATELET COUNT 25 K/MM3 (134-434)
--- NOTE | 2017-01-05 09:39 | PN ---
Progress Note, Physician History of Present Illness: Mental status has improved to baseline. No events on telemetry. - Current Medication List Current Medications: Active Medications Heparin Sodium (Porcine) (Heparin -) 5,000 unit SQ BID [facility] Last Admin: 01/04/17 23:01 Dose: 5,000 unit Dextrose/Sodium Chloride (D5-Ns -) 1,000 mls @ 50 mls/hr IV ASDIR [facility] Last Admin: 01/04/17 19:03 Dose: 50 mls/hr Levofloxacin (Levaquin 750 Mg Premixed Ivpb -) 150 mls @ 100 mls/hr IVPB DAILY [facility] Last Admin: 01/04/17 15:00 Dose: 100 mls/hr Levetiracetam (Keppra Oral Solution -) 400 mg PO BID [facility] Last Admin: 01/04/17 23:01 Dose: 400 mg Metoprolol Tartrate (Lopressor -) 25 mg PO BID [facility] Last Admin: 01/04/17 23:01 Dose: 25 mg Propylthiouracil (Ptu -) 25 mg PO BID [facility] Last Admin: 01/04/17 23:01 Dose: 25 mg - Objective Vital Signs: Vital Signs Temperature 98.5 F 01/05/17 02:10 Pulse Rate 73 01/05/17 06:00 Respiratory Rate 20 01/05/17 06:00 Blood Pressure 122/59 01/05/17 06:00 O2 Sat by Pulse Oximetry (%) 98 01/04/17 21:00 Constitutional: Yes: No Distress, Calm Neck: Yes: Supple Cardiovascular: Yes: Regular Rate and Rhythm Respiratory: Yes: Regular, Diminished, On Nasal O2 Gastrointestinal: Yes: Normal Bowel Sounds, Soft Edema: No Labs: CBC, BMP 01/05/17 06:30 01/05/17 06:30 INR, PTT INR 1.10 (0.82-1.09) 01/03/17 14:25 - ....Imaging EKG: Report Reviewed (NSR @ 75 1st deg AVB Tele: SR) Problem List - Problems (1) Change in mental status Code(s): R41.82 - ALTERED MENTAL STATUS, UNSPECIFIED Qualifiers: Altered mental status type: somnolence Qualified Code(s): R40.0 - Somnolence; R40.0 - Somnolence (2) Thrombocytopenia Code(s): D69.6 - THROMBOCYTOPENIA, UNSPECIFIED (3) Atrial fibrillation Code(s): I48.91 - UNSPECIFIED ATRIAL FIBRILLATION Qualifiers: Atrial fibrillation type: paroxysmal Qualified Code(s): I48.0 - Paroxysmal atrial fibrillation; I48.0 - Paroxysmal atrial fibrillation; I48.0 - Paroxysmal atrial fibrillation; I48.0 - Paroxysmal atrial fibrillation (4) Coronary artery disease Code(s): I25.10 - ATHSCL HEART DISEASE OF [place] CORONARY ARTERY W/O ANG PCTRS Qualifiers: Coronary Disease-Associated Artery/Lesion type: [place] artery [place] vs. transplanted heart: [place] heart Associated angina: without angina Qualified Code(s): I25.10 - Atherosclerotic heart disease of [place] coronary artery without angina pectoris; I25.10 - Atherosclerotic heart disease of [place] coronary artery without angina pectoris; I25.10 - Atherosclerotic heart disease of [place] coronary artery without angina pectoris (5) Dementia Code(s): F03.90 - UNSPECIFIED DEMENTIA WITHOUT BEHAVIORAL DISTURBANCE Qualifiers: Dementia type: unspecified type (6) Sarcoidosis Code(s): D86.9 - SARCOIDOSIS, UNSPECIFIED (7) Lactic acidosis Code(s): E87.2 - ACIDOSIS Assessment/Plan 11/04/2014 Echocardiogram shows normal LV fxn with mild MR, TR 1. Pneumonia, sepsis 2. History of neurocardiogenic syncope 3. CAD, angina pectoris 4. LV diastolic dysfunction with history of failure 5. Paroxysmal atrial fibrillation now in sinus rhythm on no anticoagulation due to chronic thrombocytopenia 6. Hypertension 7. Hyperthyroidism 8. Sarcoidosis 9. Organic brain syndrome/Dementia 10. Chronic thrombocytopenia 11. Seizure d/o PLAN: 1. Complete antibiotic course 2. Continue Lopressor 25 bid 3. D/c subcutaneous heparin given thrombocytopenia
[2017-01-05] MEDS ORDERED: PT OWN MED DRAWER 7, Y5N ONE ×3 (10:50→22:22)
--- NOTE | 2017-01-05 10:50 | PN ---
Progress Note, Physician History of Present Illness: Pt with dementia, at baseline cannot answer questions. 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 - Current Medication List Current Medications: Active Medications Dextrose/Sodium Chloride (D5-Ns -) 1,000 mls @ 50 mls/hr IV ASDIR [facility] Last Admin: 01/04/17 19:03 Dose: 50 mls/hr Levofloxacin (Levaquin 750 Mg Premixed Ivpb -) 150 mls @ 100 mls/hr IVPB DAILY [facility] Last Admin: 01/04/17 15:00 Dose: 100 mls/hr Levetiracetam (Keppra Oral Solution -) 400 mg PO BID [facility] Last Admin: 01/04/17 23:01 Dose: 400 mg Metoprolol Tartrate (Lopressor -) 25 mg PO BID [facility] Last Admin: 01/04/17 23:01 Dose: 25 mg Propylthiouracil (Ptu -) 25 mg PO BID [facility] Last Admin: 01/04/17 23:01 Dose: 25 mg - Objective Vital Signs: Vital Signs Temperature 98.5 F 01/05/17 02:10 Pulse Rate 73 01/05/17 06:00 Respiratory Rate 20 01/05/17 06:00 Blood Pressure 122/59 01/05/17 06:00 O2 Sat by Pulse Oximetry (%) 98 01/04/17 21:00 Constitutional: Yes: No Distress, Calm Cardiovascular: Yes: Regular Rate and Rhythm, S1, S2 Respiratory: Yes: Regular, CTA Bilaterally, Diminished (pt doesn't take deep breaths in even when prompted, secondary to dementia), Other. No: Rales Gastrointestinal: Yes: Normal Bowel Sounds, Soft Edema: No Neurological: Yes: Alert Labs: CBC, BMP 01/05/17 06:30 01/05/17 06:30 INR, PTT INR 1.10 (0.82-1.09) 01/03/17 14:25 Problem List - Problems (1) Hypotension Code(s): I95.9 - HYPOTENSION, UNSPECIFIED Qualifiers: Hypotension type: unspecified hypotension type Qualified Code(s): I95.9 - Hypotension, unspecified; I95.9 - Hypotension, unspecified (2) Hypoxemia Code(s): R09.02 - HYPOXEMIA (3) Change in mental status Code(s): R41.82 - ALTERED MENTAL STATUS, UNSPECIFIED Qualifiers: Altered mental status type: somnolence Qualified Code(s): R40.0 - Somnolence; R40.0 - Somnolence (4) UTI (urinary tract infection) Code(s): N39.0 - URINARY TRACT INFECTION, SITE NOT SPECIFIED Qualifiers: Urinary tract infection type: acute cystitis Hematuria presence: with hematuria Qualified Code(s): N30.01 - Acute cystitis with hematuria; N30.01 - Acute cystitis with hematuria (5) Dementia Code(s): F03.90 - UNSPECIFIED DEMENTIA WITHOUT BEHAVIORAL DISTURBANCE Qualifiers: Dementia type: unspecified type (6) PAF (paroxysmal atrial fibrillation) Code(s): I48.0 - PAROXYSMAL ATRIAL FIBRILLATION (7) Lactic acidosis Code(s): E87.2 - ACIDOSIS (8) Thrombocytopenia Code(s): D69.6 - THROMBOCYTOPENIA, UNSPECIFIED (9) Abnormal chest xray Assessment/Plan: trending down Code(s): R93.8 - ABNORMAL FINDINGS ON DIAGNOSTIC IMAGING OF BODY STRUCTURES (10) Sepsis Code(s): A41.9 - SEPSIS, UNSPECIFIED ORGANISM (11) PNA (pneumonia) Code(s): J18.9 - PNEUMONIA, UNSPECIFIED ORGANISM Assessment/Plan Admitted to Telemetry Serial CE negative. Cardio Consult appreciated. Monitor UCX, BCX AM labs, monitor platelets IVF- to DC IV abtx- was changed Pulmonary consult appreciated
[2017-01-05] MEDS: PROPYLTHIOURACIL 50 MG TABLET (UD) PO SCH ×2 (10:56→22:32)
[2017-01-05] MEDS: LEVOFLOXACIN 750 MG IVPB 150 ML IVPB SCH (10:56)
[2017-01-05] MEDS: levETIRAcetam 500 MG/5 ML ORAL SOLUTION (UNIT-DOSE CUPS) PO SCH ×2 (10:57→22:33)
[2017-01-05] MEDS: METOPROLOL TARTRATE 25 MG TABLET (FP) PO SCH ×2 (10:57→22:33)
--- NOTE | 2017-01-05 11:04 | PN ---
Teaching Attending Note Name of Resident: Kenzie Moody ATTENDING PHYSICIAN STATEMENT I saw and evaluated the patient. I reviewed the resident's note and discussed the case with the resident. I agree with the resident's findings and plan as documented. PULMONARY ALERT,NON-VERBAL -RESP DISTRESS,HEMODYNAMICALLY STABLE ASSESSMENT AND PLAN: Pneumonia Sepsis CAD LV Diastolic Dysfunction Paroxysmal Atrial Fibrillation Sarcoidosis Chronic Thrombocytopenia - continue levaquin 500mg - aspiration precautions - swallow eval - f/u chest x-ray - DVT prophylaxis - monitor plt ct DR SUH Problem List - Problems (1) Abnormal chest xray Code(s): R93.8 - ABNORMAL FINDINGS ON DIAGNOSTIC IMAGING OF BODY STRUCTURES (2) Change in mental status Code(s): R41.82 - ALTERED MENTAL STATUS, UNSPECIFIED Qualifiers: Altered mental status type: somnolence Qualified Code(s): R40.0 - Somnolence; R40.0 - Somnolence (3) Hypotension Code(s): I95.9 - HYPOTENSION, UNSPECIFIED Qualifiers: Hypotension type: unspecified hypotension type Qualified Code(s): I95.9 - Hypotension, unspecified; I95.9 - Hypotension, unspecified (4) PAF (paroxysmal atrial fibrillation) Code(s): I48.0 - PAROXYSMAL ATRIAL FIBRILLATION (5) PNA (pneumonia) Code(s): J18.9 - PNEUMONIA, UNSPECIFIED ORGANISM (6) Sepsis Code(s): A41.9 - SEPSIS, UNSPECIFIED ORGANISM (7) Hypothyroid Code(s): E03.9 - HYPOTHYROIDISM, UNSPECIFIED Qualifiers: Hypothyroidism type: unspecified Qualified Code(s): E03.9 - Hypothyroidism, unspecified; E03.9 - Hypothyroidism, unspecified; E03.9 - Hypothyroidism, unspecified (8) Thrombocytopenia Code(s): D69.6 - THROMBOCYTOPENIA, UNSPECIFIED (9) Coronary artery disease Code(s): I25.10 - ATHSCL HEART DISEASE OF [place] CORONARY ARTERY W/O ANG PCTRS Qualifiers: Coronary Disease-Associated Artery/Lesion type: [place] artery [place] vs. transplanted heart: [place] heart Associated angina: without angina Qualified Code(s): I25.10 - Atherosclerotic heart disease of [place] coronary artery without angina pectoris; I25.10 - Atherosclerotic heart disease of [place] coronary artery without angina pectoris; I25.10 - Atherosclerotic heart disease of [place] coronary artery without angina pectoris (10) Dementia Code(s): F03.90 - UNSPECIFIED DEMENTIA WITHOUT BEHAVIORAL DISTURBANCE Qualifiers: Dementia type: unspecified type (11) Sarcoidosis Code(s): D86.9 - SARCOIDOSIS, UNSPECIFIED
--- NOTE | 2017-01-05 12:02 | EKG ---
Test Reason : Blood Pressure : / mmHG Vent. Rate : 075 BPM Atrial Rate : 075 BPM P-R Int : 212 ms QRS Dur : 068 ms QT Int : 414 ms P-R-T Axes : 064 037 094 degrees QTc Int : 462 ms SINUS RHYTHM WITH 1ST DEGREE A-V BLOCK WHEN COMPARED WITH ECG OF 03-JAN-2017 14:03, MINIMAL CRITERIA FOR INFERIOR INFARCT ARE NO LONGER PRESENT Confirmed by BRIGID GARCIA MD ([id number]) on 01/05/2017 12:02:26 PM Referred By: DAVID GREGORY Confirmed By:BRIGID GARCIA MD
--- NOTE | 2017-01-05 13:52 | PN ---
Physical Exam: SUBJECTIVE: Patient seen and examined. Mild fever last night. Nonverbal. OBJECTIVE: Vital Signs Period Temp Pulse Resp BP Sys/Ramirez Pulse Ox Last 24 Hr 98.5 F-100.7 F 69-98 19-20 102-129/54-79 98 GEN: Awake, alert, not oriented, not responsive to questions (at baseline) HEENT: PERRLA, not cooperative with EOM CV: S1, S2, RRR LUNG: Difficult to assess due to position, grossly clear ABD: Soft, NT, ND MSK: No edema, no erythema Laboratory Results - last 24 hr 01/05/17 01/05/17 06:30 06:30 WBC 4.5 RBC 3.85 Hgb 11.6 Hct 35.4 MCV 91.9 MCH 30.2 MCHC 32.8 RDW 12.9 Plt Count 25 L* D MPV 10.9 Sodium 139 Potassium 3.7 Chloride 108 H Carbon Dioxide 22 Anion Gap 9 BUN 11 D Creatinine 0.5 L Creat Clearance w eGFR > 60 Random Glucose 105 Calcium 7.8 L Total Bilirubin 0.6 D AST 15 ALT 14 Alkaline Phosphatase 62 Total Protein 6.4 Albumin 2.9 L Active Medications Generic Name Dose Route Start Last Admin Trade Name Freq PRN Reason Stop Dose Admin Dextrose/Sodium Chloride 1,000 mls @ 50 mls/hr 01/03/17 18:15 01/04/17 19:03 D5-Ns - IV 50 mls/hr ASDIR PAULINE Administration Levofloxacin 150 mls @ 100 mls/hr 01/04/17 14:04 01/05/17 10:56 Levaquin 750 Mg Premixed Ivpb - IVPB 100 mls/hr DAILY PAULINE Administration Levetiracetam 400 mg 01/03/17 22:00 01/05/17 10:57 Keppra Oral Solution - PO 400 mg BID PAULINE Administration Metoprolol Tartrate 25 mg 01/04/17 10:00 01/05/17 10:57 Lopressor - PO 25 mg BID PAULINE Administration Propylthiouracil 25 mg 01/03/17 22:00 01/05/17 10:56 Ptu - PO 25 mg BID PAULINE Administration ASSESSMENT/PLAN: Ms. Nickerson is an 86yo F with PMHx of Advanced Dementia, CHF, ITP, Sarcoidosis who presented from [facility] with AMS. # RUL Pneumonia - resolving - Likely secondary to aspiration vs less likely HCAP - Continue Levaquin and f/u EKG for QTc - Follow dysphagia puree diet as per S&S - Continue HOB elevation - SQ Heparin held due to thrombocytopenia [place] w/ Dr Layton. Thank you for this consultation. Will follow Kenzie Moody MD - PGY1 Visit type - Emergency Visit Emergency Visit: No - New Patient This patient is new to me today: No - Critical Care Critical Care patient: No - Discharge Referral Referred to [facility] No
[2017-01-05] MEDS: DEXTROSE 5%-NORMAL SALINE 1,000 ML IV SCH (18:38)
--- NOTE | 2017-01-05 18:55 | CONSULT ---
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 - Past Medical History [employer]: Yes: Dementia Cardiovascular: Yes: CHF, HTN, Other (PAF- ot on AC) Heme/Onc: Yes: Thrombocytopenia Rheumatology: Yes: Sarcoidosis Endocrine: Yes: Hyperthyroidism Dermatology: Yes: Basal Cell (of LE) - Smoking History Smoking history: Never smoked - Allergies Allergies/Adverse Reactions: Allergies Allergy/AdvReac Type Severity Reaction Status Date / Time donepezil HCl [From Aricept] Allergy Mild Rash Verified 01/03/17 14:31 memantine HCl [From Namenda] Allergy Mild Hives Verified 01/03/17 14:31 - Home Medications Home Medications: Ambulatory Orders Acetaminophen [Acetaminophen Extra Strength] 500 mg PO Q6H PRN #0 tablet Multivitamin [Multivitamins] 1 each PO AM #0 capsule 09/11/11 Raloxifene HCl [Evista] 60 mg PO DAILY #0 tablet 09/11/11 Cyanocobalamin Vit B-12 Inj. [Vitamin B12 Injection -] 1,000 mcg IM PRN #0 vial 11/04/14 Rivastigmine Tartrate [Rivastigmine] 1.5 mg PO BID #0 capsule 11/04/14 Metoprolol Succinate [Toprol XL -] 25 mg PO BID #60 tab.sr.24h 04/03/15 Propylthiouracil 25 mg PO BID #60 tablet 04/03/15 Risperidone [Risperdal -] 0.25 mg PO DAILY tablet 04/03/15 Levetiracetam [Keppra -] 400 mg PO BID 05/17/15 Lisinopril 10 mg PO DAILY 05/17/15 Pregabalin [Lyrica -] 75 mg PO Q12H 05/17/15 Vitamin C 500 mg PO DAILY 05/01/16 Zinc Sulfate 220 mg PO DAILY 05/01/16 Physical Examination Vital Signs: Last Vital Signs Temp Pulse Resp BP Pulse Ox 97.2 F L 84 18 140/76 98 01/06/17 06:11 01/06/17 06:11 01/06/17 06:11 01/06/17 06:11 01/05/17 20:29 Cor: RSR, No murmurs, No gallops Lungs: Clear to P&A Abd: Soft, Normal bowel sounds, No organomegaly Ext:No significant edema Skin: No rashes, Integument intact Problem List - Problems (1) Hypotension Code(s): I95.9 - HYPOTENSION, UNSPECIFIED Qualifiers: Hypotension type: unspecified hypotension type Qualified Code(s): I95.9 - Hypotension, unspecified; I95.9 - Hypotension, unspecified (2) Hypoxemia Code(s): R09.02 - HYPOXEMIA (3) Change in mental status Code(s): R41.82 - ALTERED MENTAL STATUS, UNSPECIFIED Qualifiers: Altered mental status type: somnolence Qualified Code(s): R40.0 - Somnolence; R40.0 - Somnolence (4) UTI (urinary tract infection) Code(s): N39.0 - URINARY TRACT INFECTION, SITE NOT SPECIFIED Qualifiers: Urinary tract infection type: acute cystitis Hematuria presence: with hematuria Qualified Code(s): N30.01 - Acute cystitis with hematuria; N30.01 - Acute cystitis with hematuria (5) Dementia Code(s): F03.90 - UNSPECIFIED DEMENTIA WITHOUT BEHAVIORAL DISTURBANCE Qualifiers: Dementia type: unspecified type (6) PAF (paroxysmal atrial fibrillation) Code(s): I48.0 - PAROXYSMAL ATRIAL FIBRILLATION (7) Lactic acidosis Code(s): E87.2 - ACIDOSIS (8) Thrombocytopenia Code(s): D69.6 - THROMBOCYTOPENIA, UNSPECIFIED (9) Abnormal chest xray Code(s): R93.8 - ABNORMAL FINDINGS ON DIAGNOSTIC IMAGING OF BODY STRUCTURES (10) Sepsis Assessment/Plan: to f/u UCX, BCX cont IV abtx Code(s): A41.9 - SEPSIS, UNSPECIFIED ORGANISM 86 y/o patient with HTN, CHF, sarcoid, hyperthyroidism, dementia( advanced) admitted with possible aspiration , RUL pneuonia, UTI On levaquin Chronic thrombocytopenia--?ITP vs liver disease vs MDS versus meds ? propylthiouracil Worsening due to infection r/o DIC picture Check B12/folate/TSH/fT4/PT/PTT/LDH check flow/cytogenetics/FISH check U/S abdomen transfuse if bleeding or platelets < [id number] ? consider endocrine consult regarding PTU if platlets dont improve with treatment of infection but seems like patient has been on PTU fpc will follow
[2017-01-06 07:26] LABS: MCHC 32.9 g/dl (32.0-36.0); MEAN PLT VOLUME 10.7 fl (7.5-11.1); RDW 12.7 % (11.6-15.6); WHITE BLOOD COUNT 4.4 K/mm3 (4.0-10.0)
[2017-01-06 07:43] LABS: INR 1.14 (0.82-1.09); PROTHROMBIN TIME (PATIENT) 12.6 SEC (9.98-11.88)
[2017-01-06 07:45] LABS: ALBUMIN 2.9 g/dl (3.4-5.0); ANION GAP 9 (8-16); BILIRUBIN,TOTAL 0.3 mg/dL (0.2-1.0); CO2 23 mmol/L (21-32); CREATININE 0.6 mg/dL (0.55-1.02); GLUCOSE,RANDOM 113 mg/dL (74-106); LDH 144 U/L (84-246); SGOT/AST 14 U/L (15-37); SGPT/ALT 13 U/L (12-78); TOT PROT 6.2 g/dl (6.4-8.2)
[2017-01-06 07:46] LABS: ACTIVATED PTT 25.6 SECONDS (26.9-34.4)
[2017-01-06 08:10] LABS: ALK PHOS 60 U/L (45-117)
[2017-01-06 08:27] LABS: PLATELET COUNT 27 K/MM3 (134-434)
[2017-01-06] MEDS ORDERED: PT OWN MED DRAWER 7, Y5N ONE ×3 (08:42→22:06)
[2017-01-06 08:58] LABS: THYROID STIMULATING HORMONE 3.74 uIU/ml (0.358-3.74)
[2017-01-06 08:59] LABS: FREE T4 1.14 ng/dl (0.76-1.46)
[2017-01-06] MEDS: LEVOFLOXACIN 750 MG IVPB 150 ML IVPB SCH (09:01)
[2017-01-06] MEDS: METOPROLOL TARTRATE 25 MG TABLET (FP) PO SCH ×2 (09:01→22:20)
[2017-01-06] MEDS: levETIRAcetam 500 MG/5 ML ORAL SOLUTION (UNIT-DOSE CUPS) PO SCH ×2 (09:01→22:20)
[2017-01-06] MEDS: PROPYLTHIOURACIL 50 MG TABLET (UD) PO SCH ×2 (09:02→22:19)
[2017-01-06 09:06] LABS: PLATELET ESTIMATE MARKEDLY DECREASED (NORMAL); TOTAL CELLS COUNTED 100
--- NOTE | 2017-01-06 09:22 | PN ---
Progress Note, Physician History of Present Illness: pulmonary awake,non verbal,-resp distress - Current Medication List Current Medications: Active Medications Dextrose/Sodium Chloride (D5-Ns -) 1,000 mls @ 50 mls/hr IV ASDIR [facility] Last Admin: 01/05/17 18:38 Dose: Not Given Levofloxacin (Levaquin 750 Mg Premixed Ivpb -) 150 mls @ 100 mls/hr IVPB DAILY [facility] Last Admin: 01/06/17 09:01 Dose: 100 mls/hr Levetiracetam (Keppra Oral Solution -) 400 mg PO BID [facility] Last Admin: 01/06/17 09:01 Dose: 400 mg Metoprolol Tartrate (Lopressor -) 25 mg PO BID [facility] Last Admin: 01/06/17 09:01 Dose: 25 mg Propylthiouracil (Ptu -) 25 mg PO BID [facility] Last Admin: 01/06/17 09:02 Dose: 25 mg - Objective Vital Signs: Vital Signs Temperature 97.2 F L 01/06/17 06:11 Pulse Rate 84 01/06/17 06:11 Respiratory Rate 18 01/06/17 06:11 Blood Pressure 140/76 01/06/17 06:11 O2 Sat by Pulse Oximetry (%) 98 01/05/17 20:29 Constitutional: Yes: Well Nourished, Calm Eyes: Yes: WNL HENT: Yes: WNL Neck: Yes: WNL Cardiovascular: Yes: Regular Rate and Rhythm, S1, S2 Respiratory: Yes: Diminished (poor inspiratory effort) Gastrointestinal: Yes: Normal Bowel Sounds, Soft Extremities: Yes: WNL Edema: No Labs: CBC, BMP 01/06/17 06:45 01/06/17 06:45 INR, PTT INR 1.14 (0.82-1.09) 01/06/17 06:45 Fibrinogen 503.0 mg/dL (238-498) H 01/06/17 06:45 Problem List - Problems (1) Abnormal chest xray Code(s): R93.8 - ABNORMAL FINDINGS ON DIAGNOSTIC IMAGING OF BODY STRUCTURES (2) Change in mental status Code(s): R41.82 - ALTERED MENTAL STATUS, UNSPECIFIED Qualifiers: Altered mental status type: somnolence Qualified Code(s): R40.0 - Somnolence; R40.0 - Somnolence (3) Hypotension Code(s): I95.9 - HYPOTENSION, UNSPECIFIED Qualifiers: Hypotension type: unspecified hypotension type Qualified Code(s): I95.9 - Hypotension, unspecified; I95.9 - Hypotension, unspecified (4) PAF (paroxysmal atrial fibrillation) Code(s): I48.0 - PAROXYSMAL ATRIAL FIBRILLATION (5) PNA (pneumonia) Code(s): J18.9 - PNEUMONIA, UNSPECIFIED ORGANISM (6) Sepsis Code(s): A41.9 - SEPSIS, UNSPECIFIED ORGANISM (7) Hypothyroid Code(s): E03.9 - HYPOTHYROIDISM, UNSPECIFIED Qualifiers: Hypothyroidism type: unspecified Qualified Code(s): E03.9 - Hypothyroidism, unspecified; E03.9 - Hypothyroidism, unspecified; E03.9 - Hypothyroidism, unspecified (8) Thrombocytopenia Code(s): D69.6 - THROMBOCYTOPENIA, UNSPECIFIED (9) Coronary artery disease Code(s): I25.10 - ATHSCL HEART DISEASE OF [place] CORONARY ARTERY W/O ANG PCTRS Qualifiers: Coronary Disease-Associated Artery/Lesion type: [place] artery [place] vs. transplanted heart: [place] heart Associated angina: without angina Qualified Code(s): I25.10 - Atherosclerotic heart disease of [place] coronary artery without angina pectoris; I25.10 - Atherosclerotic heart disease of [place] coronary artery without angina pectoris; I25.10 - Atherosclerotic heart disease of [place] coronary artery without angina pectoris (10) Dementia Code(s): F03.90 - UNSPECIFIED DEMENTIA WITHOUT BEHAVIORAL DISTURBANCE Qualifiers: Dementia type: unspecified type (11) Sarcoidosis Code(s): D86.9 - SARCOIDOSIS, UNSPECIFIED Assessment/Plan ASSESSMENT AND PLAN: Pneumonia Sepsis CAD LV Diastolic Dysfunction Paroxysmal Atrial Fibrillation Sarcoidosis Chronic Thrombocytopenia - levaquin - aspiration precautions - f/u chest x-ray today - DVT prophylaxis - monitor plt ct DR SUH Problem List - Problems (1) Abnormal chest xray Code(s): R93.8 - ABNORMAL FINDINGS ON DIAGNOSTIC IMAGING OF BODY STRUCTURES (2) Change in mental status Code(s): R41.82 - ALTERED MENTAL STATUS, UNSPECIFIED Qualifiers: Altered mental status type: somnolence Qualified Code(s): R40.0 - Somnolence; R40.0 - Somnolence (3) Hypotension Code(s): I95.9 - HYPOTENSION, UNSPECIFIED Qualifiers: Hypotension type: unspecified hypotension type Qualified Code(s): I95.9 - Hypotension, unspecified; I95.9 - Hypotension, unspecified (4) PAF (paroxysmal atrial fibrillation) Code(s): I48.0 - PAROXYSMAL ATRIAL FIBRILLATION (5) PNA (pneumonia) Code(s): J18.9 - PNEUMONIA, UNSPECIFIED ORGANISM (6) Sepsis Code(s): A41.9 - SEPSIS, UNSPECIFIED ORGANISM (7) Hypothyroid Code(s): E03.9 - HYPOTHYROIDISM, UNSPECIFIED Qualifiers: Hypothyroidism type: unspecified Qualified Code(s): E03.9 - Hypothyroidism, unspecified; E03.9 - Hypothyroidism, unspecified; E03.9 - Hypothyroidism, unspecified (8) Thrombocytopenia Code(s): D69.6 - THROMBOCYTOPENIA, UNSPECIFIED (9) Coronary artery disease Code(s): I25.10 - ATHSCL HEART DISEASE OF [place] CORONARY ARTERY W/O ANG PCTRS Qualifiers: Coronary Disease-Associated Artery/Lesion type: [place] artery [place] vs. transplanted heart: [place] heart Associated angina: without angina Qualified Code(s): I25.10 - Atherosclerotic heart disease of [place] coronary artery without angina pectoris; I25.10 - Atherosclerotic heart disease of [place] coronary artery without angina pectoris; I25.10 - Atherosclerotic heart disease of [place] coronary artery without angina pectoris (10) Dementia Code(s): F03.90 - UNSPECIFIED DEMENTIA WITHOUT BEHAVIORAL DISTURBANCE Qualifiers: Dementia type: unspecified type (11) Sarcoidosis Code(s): D86.9 - SARCOIDOSIS, UNSPECIFIED
--- NOTE | 2017-01-06 10:04 | PN ---
Progress Note, Physician Chief Complaint: in bed awake alert NAD afebrile low PLT noted; no bleed noted; daughter and [employer] STRAIGHTENER at bedside; no new c/o chart meds consults labs and tests reviewed - Current Medication List Current Medications: Active Medications Dextrose/Sodium Chloride (D5-Ns -) 1,000 mls @ 50 mls/hr IV ASDIR [facility] Last Admin: 01/05/17 18:38 Dose: Not Given Levofloxacin (Levaquin 750 Mg Premixed Ivpb -) 150 mls @ 100 mls/hr IVPB DAILY [facility] Last Admin: 01/06/17 09:01 Dose: 100 mls/hr Levetiracetam (Keppra Oral Solution -) 400 mg PO BID [facility] Last Admin: 01/06/17 09:01 Dose: 400 mg Metoprolol Tartrate (Lopressor -) 25 mg PO BID [facility] Last Admin: 01/06/17 09:01 Dose: 25 mg Propylthiouracil (Ptu -) 25 mg PO BID [facility] Last Admin: 01/06/17 09:02 Dose: 25 mg - Objective Vital Signs: Vital Signs Temperature 97.2 F L 01/06/17 06:11 Pulse Rate 84 01/06/17 06:11 Respiratory Rate 18 01/06/17 06:11 Blood Pressure 140/76 01/06/17 06:11 O2 Sat by Pulse Oximetry (%) 98 01/05/17 20:29 Constitutional: Yes: No Distress, Calm Eyes: Yes: Conjunctiva Clear HENT: Yes: Atraumatic Neck: Yes: Supple Cardiovascular: Yes: Regular Rate and Rhythm Respiratory: Yes: CTA Bilaterally Gastrointestinal: Yes: Soft. No: Distention, Tenderness Genitourinary: No: CVA Tenderness - Left, CVA Tenderness - Right Musculoskeletal: No: Joint Stiffness, Joint Swelling Extremities: No: Cold, Cool Edema: No Integumentary: No: Rash, Venous Stasis Changes Neurological: Yes: Alert. No: Oriented Psychiatric: Yes: Alert. No: Oriented, Agitated Labs: CBC, BMP 01/06/17 06:45 01/06/17 06:45 INR, PTT INR 1.14 (0.82-1.09) 01/06/17 06:45 Fibrinogen 503.0 mg/dL (238-498) H 01/06/17 06:45 - ....Imaging Other: Report Reviewed Assessment/Plan 86 y/o patient with HTN, CHF, sarcoid, hyperthyroidism, dementia( advanced) admitted with possible aspiration , RUL pneumonia, UTI; low PLT On levaquin pulmonary, cardiology and heme f/u will continue to monitor labs DVT aspiration falls decubs PFX d/w pt and staff d/w pt's daughter and pt's [employer] STRAIGHTENER at bedside
--- NOTE | 2017-01-06 10:22 | PN ---
Progress Note, Physician History of Present Illness: Mental status has improved to baseline. No events on telemetry. Afebrile. - Current Medication List Current Medications: Active Medications Dextrose/Sodium Chloride (D5-Ns -) 1,000 mls @ 50 mls/hr IV ASDIR [facility] Last Admin: 01/05/17 18:38 Dose: Not Given Levofloxacin (Levaquin 750 Mg Premixed Ivpb -) 150 mls @ 100 mls/hr IVPB DAILY [facility] Last Admin: 01/06/17 09:01 Dose: 100 mls/hr Levetiracetam (Keppra Oral Solution -) 400 mg PO BID [facility] Last Admin: 01/06/17 09:01 Dose: 400 mg Metoprolol Tartrate (Lopressor -) 25 mg PO BID [facility] Last Admin: 01/06/17 09:01 Dose: 25 mg Propylthiouracil (Ptu -) 25 mg PO BID [facility] Last Admin: 01/06/17 09:02 Dose: 25 mg - Objective Vital Signs: Vital Signs Temperature 97.2 F L 01/06/17 06:11 Pulse Rate 84 01/06/17 06:11 Respiratory Rate 18 01/06/17 06:11 Blood Pressure 140/76 01/06/17 06:11 O2 Sat by Pulse Oximetry (%) 98 01/05/17 20:29 Constitutional: Yes: No Distress, Calm Neck: Yes: Supple Cardiovascular: Yes: Regular Rate and Rhythm Respiratory: Yes: Regular, Diminished Gastrointestinal: Yes: Normal Bowel Sounds, Soft Edema: No Labs: CBC, BMP 01/06/17 06:45 01/06/17 06:45 INR, PTT INR 1.14 (0.82-1.09) 01/06/17 06:45 Fibrinogen 503.0 mg/dL (238-498) H 01/06/17 06:45 Problem List - Problems (1) Change in mental status Code(s): R41.82 - ALTERED MENTAL STATUS, UNSPECIFIED Qualifiers: Altered mental status type: somnolence Qualified Code(s): R40.0 - Somnolence; R40.0 - Somnolence (2) Thrombocytopenia Code(s): D69.6 - THROMBOCYTOPENIA, UNSPECIFIED (3) Atrial fibrillation Code(s): I48.91 - UNSPECIFIED ATRIAL FIBRILLATION Qualifiers: Atrial fibrillation type: paroxysmal Qualified Code(s): I48.0 - Paroxysmal atrial fibrillation; I48.0 - Paroxysmal atrial fibrillation; I48.0 - Paroxysmal atrial fibrillation; I48.0 - Paroxysmal atrial fibrillation (4) Coronary artery disease Code(s): I25.10 - ATHSCL HEART DISEASE OF [place] CORONARY ARTERY W/O ANG PCTRS Qualifiers: Coronary Disease-Associated Artery/Lesion type: [place] artery [place] vs. transplanted heart: [place] heart Associated angina: without angina Qualified Code(s): I25.10 - Atherosclerotic heart disease of [place] coronary artery without angina pectoris; I25.10 - Atherosclerotic heart disease of [place] coronary artery without angina pectoris; I25.10 - Atherosclerotic heart disease of [place] coronary artery without angina pectoris (5) Dementia Code(s): F03.90 - UNSPECIFIED DEMENTIA WITHOUT BEHAVIORAL DISTURBANCE Qualifiers: Dementia type: unspecified type (6) Sarcoidosis Code(s): D86.9 - SARCOIDOSIS, UNSPECIFIED (7) Lactic acidosis Code(s): E87.2 - ACIDOSIS Assessment/Plan 11/04/2014 Echocardiogram shows normal LV fxn with mild MR, TR 1. Pneumonia, sepsis 2. History of neurocardiogenic syncope 3. CAD, angina pectoris 4. LV diastolic dysfunction with history of failure 5. Paroxysmal atrial fibrillation now in sinus rhythm on no anticoagulation due to chronic thrombocytopenia 6. Hypertension 7. Hyperthyroidism 8. Sarcoidosis 9. Organic brain syndrome/Dementia 10. Chronic thrombocytopenia ?ITP vs liver disease vs MDS versus meds ? propylthiouracil 11. Seizure d/o PLAN: 1. Complete antibiotic course 2. Continue Lopressor 25 bid 3. D/c subcutaneous heparin given thrombocytopenia
--- NOTE | 2017-01-06 14:06 | PN ---
Progress Note (short form) - Note Progress Note: pt seen and examined. her aide at bedside. no overnight events. O/E: Cor: RSR, No murmurs, No gallops Lungs: Clear Abd: Soft, Normal bowel sounds, No organomegaly Ext:contracted Skin: No rashes, Integument intact Temp Pulse Resp BP Pulse Ox 98 F 88 20 126/50 97 01/06/17 10:00 01/06/17 10:00 01/06/17 10:00 01/06/17 10:00 01/06/17 09:00 CBC, BMP 01/06/17 06:45 Current Medications Generic Name Dose Route Start Last Admin Trade Name Freq PRN Reason Stop Dose Admin Dextrose/Sodium Chloride 1,000 mls @ 50 mls/hr 01/03/17 18:15 01/05/17 18:38 D5-Ns - IV Not Given ASDIR PAULINE Levofloxacin 150 mls @ 100 mls/hr 01/04/17 14:04 01/06/17 09:01 Levaquin 750 Mg Premixed Ivpb - IVPB 100 mls/hr DAILY PAULINE Administration Levetiracetam 400 mg 01/03/17 22:00 01/06/17 09:01 Keppra Oral Solution - PO 400 mg BID PAULINE Administration Metoprolol Tartrate 25 mg 01/04/17 10:00 01/06/17 09:01 Lopressor - PO 25 mg BID PAULINE Administration Propylthiouracil 25 mg 01/03/17 22:00 01/06/17 09:02 Ptu - PO 25 mg BID PAULINE Administration 86 y/o patient with HTN, CHF, sarcoid, hyperthyroidism, dementia( advanced) admitted with possible aspiration , RUL pneuonia, UTI On levaquin f/u on the previous w/u ordered no transfusion for now will continue to monitor.
[2017-01-07 07:03] LABS: ALBUMIN 2.9 g/dl (3.4-5.0); ANION GAP 11 (8-16); CALCIUM 8.2 mg/dL (8.5-10.1); CO2 22 mmol/L (21-32); GLUCOSE,RANDOM 110 mg/dL (74-106)
[2017-01-07 07:06] LABS: ALK PHOS 59 U/L (45-117); BILIRUBIN,TOTAL 0.4 mg/dL (0.2-1.0); CREATININE 0.7 mg/dL (0.55-1.02); SGOT/AST 13 U/L (15-37); SGPT/ALT 14 U/L (12-78); TOT PROT 6.3 g/dl (6.4-8.2)
[2017-01-07 07:27] LABS: MCH 30.1 pg (25.7-33.7); MCHC 32.9 g/dl (32.0-36.0); MEAN CELL VOLUME 91.5 fl (80-96); MEAN PLT VOLUME 11.6 fl (7.5-11.1); RDW 12.7 % (11.6-15.6); WHITE BLOOD COUNT 4.4 K/mm3 (4.0-10.0)
[2017-01-07 08:32] LABS: PLATELET COUNT 32 K/MM3 (134-434)
[2017-01-07] MEDS ORDERED: PT OWN MED DRAWER 7, Y5N ONE (08:52)
--- NOTE | 2017-01-07 09:16 | PN ---
Progress Note, Physician History of Present Illness: Mental status has improved to baseline. No events on telemetry. Afebrile. - Current Medication List Current Medications: Active Medications Dextrose/Sodium Chloride (D5-Ns -) 1,000 mls @ 50 mls/hr IV ASDIR [facility] Last Admin: 01/05/17 18:38 Dose: Not Given Levofloxacin (Levaquin 750 Mg Premixed Ivpb -) 150 mls @ 100 mls/hr IVPB DAILY [facility] Last Admin: 01/06/17 09:01 Dose: 100 mls/hr Levetiracetam (Keppra Oral Solution -) 400 mg PO BID [facility] Last Admin: 01/06/17 22:20 Dose: 400 mg Metoprolol Tartrate (Lopressor -) 25 mg PO BID [facility] Last Admin: 01/06/17 22:20 Dose: 25 mg Propylthiouracil (Ptu -) 25 mg PO BID [facility] Last Admin: 01/06/17 22:19 Dose: 25 mg - Objective Vital Signs: Vital Signs Temperature 97.9 F 01/07/17 08:01 Pulse Rate 79 01/07/17 08:01 Respiratory Rate 20 01/07/17 08:01 Blood Pressure 115/72 01/07/17 08:01 O2 Sat by Pulse Oximetry (%) 95 01/06/17 20:03 Constitutional: Yes: No Distress, Calm Neck: Yes: Supple Cardiovascular: Yes: Regular Rate and Rhythm Respiratory: Yes: Regular, Diminished, On Nasal O2 Gastrointestinal: Yes: Normal Bowel Sounds, Soft Edema: No Labs: CBC, BMP 01/07/17 05:10 01/07/17 05:10 INR, PTT INR 1.14 (0.82-1.09) 01/06/17 06:45 Fibrinogen 503.0 mg/dL (238-498) H 01/06/17 06:45 Problem List - Problems (1) Change in mental status Code(s): R41.82 - ALTERED MENTAL STATUS, UNSPECIFIED Qualifiers: Altered mental status type: somnolence Qualified Code(s): R40.0 - Somnolence; R40.0 - Somnolence (2) Thrombocytopenia Code(s): D69.6 - THROMBOCYTOPENIA, UNSPECIFIED (3) Atrial fibrillation Code(s): I48.91 - UNSPECIFIED ATRIAL FIBRILLATION Qualifiers: Atrial fibrillation type: paroxysmal Qualified Code(s): I48.0 - Paroxysmal atrial fibrillation; I48.0 - Paroxysmal atrial fibrillation; I48.0 - Paroxysmal atrial fibrillation; I48.0 - Paroxysmal atrial fibrillation (4) Coronary artery disease Code(s): I25.10 - ATHSCL HEART DISEASE OF [place] CORONARY ARTERY W/O ANG PCTRS Qualifiers: Coronary Disease-Associated Artery/Lesion type: [place] artery [place] vs. transplanted heart: [place] heart Associated angina: without angina Qualified Code(s): I25.10 - Atherosclerotic heart disease of [place] coronary artery without angina pectoris; I25.10 - Atherosclerotic heart disease of [place] coronary artery without angina pectoris; I25.10 - Atherosclerotic heart disease of [place] coronary artery without angina pectoris (5) Dementia Code(s): F03.90 - UNSPECIFIED DEMENTIA WITHOUT BEHAVIORAL DISTURBANCE Qualifiers: Dementia type: unspecified type (6) Sarcoidosis Code(s): D86.9 - SARCOIDOSIS, UNSPECIFIED (7) Lactic acidosis Code(s): E87.2 - ACIDOSIS (8) UTI (urinary tract infection) Code(s): N39.0 - URINARY TRACT INFECTION, SITE NOT SPECIFIED Qualifiers: Urinary tract infection type: acute cystitis Hematuria presence: with hematuria Qualified Code(s): N30.01 - Acute cystitis with hematuria; N30.01 - Acute cystitis with hematuria Assessment/Plan 11/04/2014 Echocardiogram shows normal LV fxn with mild MR, TR 1. Pneumonia, e. coli UTI, sepsis 2. History of neurocardiogenic syncope 3. CAD, angina pectoris 4. LV diastolic dysfunction with history of failure 5. Paroxysmal atrial fibrillation now in sinus rhythm on no anticoagulation due to chronic thrombocytopenia 6. Hypertension 7. Hyperthyroidism 8. Sarcoidosis 9. Organic brain syndrome/Dementia 10. Chronic thrombocytopenia ?ITP vs liver disease vs MDS versus meds ? propylthiouracil 11. Seizure d/o PLAN: 1. Complete antibiotic course 2. Continue Lopressor 25 bid 3. D/c subcutaneous heparin given thrombocytopenia
[2017-01-07] MEDS: PROPYLTHIOURACIL 50 MG TABLET (UD) PO SCH ×2 (09:35→21:54)
[2017-01-07] MEDS: METOPROLOL TARTRATE 25 MG TABLET (FP) PO SCH ×2 (09:36→21:55)
[2017-01-07] MEDS: levETIRAcetam 500 MG/5 ML ORAL SOLUTION (UNIT-DOSE CUPS) PO SCH ×2 (09:36→21:55)
[2017-01-07] MEDS: LEVOFLOXACIN 750 MG IVPB 150 ML IVPB SCH (09:36)
--- NOTE | 2017-01-07 10:05 | PN ---
Progress Note, Physician History of Present Illness: PULMONARY ALERT,NON-VERBAL,NAD - Current Medication List Current Medications: Active Medications Dextrose/Sodium Chloride (D5-Ns -) 1,000 mls @ 50 mls/hr IV ASDIR [facility] Last Admin: 01/05/17 18:38 Dose: Not Given Levofloxacin (Levaquin 750 Mg Premixed Ivpb -) 150 mls @ 100 mls/hr IVPB DAILY [facility] Last Admin: 01/07/17 09:36 Dose: 100 mls/hr Levetiracetam (Keppra Oral Solution -) 400 mg PO BID [facility] Last Admin: 01/07/17 09:36 Dose: 400 mg Metoprolol Tartrate (Lopressor -) 25 mg PO BID [facility] Last Admin: 01/07/17 09:36 Dose: 25 mg Propylthiouracil (Ptu -) 25 mg PO BID [facility] Last Admin: 01/07/17 09:35 Dose: 25 mg - Objective Vital Signs: Vital Signs Temperature 97.9 F 01/07/17 08:01 Pulse Rate 79 01/07/17 08:01 Respiratory Rate 20 01/07/17 08:01 Blood Pressure 115/72 01/07/17 08:01 O2 Sat by Pulse Oximetry (%) 95 01/06/17 20:03 Constitutional: Yes: Well Nourished, Calm Eyes: Yes: WNL HENT: Yes: WNL Neck: Yes: WNL Cardiovascular: Yes: Pulse Irregular, S1, S2 Respiratory: Yes: Diminished (POOR INSPIRATORY EFFORT) Gastrointestinal: Yes: Normal Bowel Sounds, Soft Extremities: Yes: WNL Edema: No Labs: CBC, BMP 01/07/17 05:10 01/07/17 05:10 INR, PTT INR 1.14 (0.82-1.09) 01/06/17 06:45 Fibrinogen 503.0 mg/dL (238-498) H 01/06/17 06:45 Problem List - Problems (1) Abnormal chest xray Code(s): R93.8 - ABNORMAL FINDINGS ON DIAGNOSTIC IMAGING OF BODY STRUCTURES (2) Change in mental status Code(s): R41.82 - ALTERED MENTAL STATUS, UNSPECIFIED Qualifiers: Altered mental status type: somnolence Qualified Code(s): R40.0 - Somnolence; R40.0 - Somnolence (3) Hypotension Code(s): I95.9 - HYPOTENSION, UNSPECIFIED Qualifiers: Hypotension type: unspecified hypotension type Qualified Code(s): I95.9 - Hypotension, unspecified; I95.9 - Hypotension, unspecified (4) PAF (paroxysmal atrial fibrillation) Code(s): I48.0 - PAROXYSMAL ATRIAL FIBRILLATION (5) PNA (pneumonia) Code(s): J18.9 - PNEUMONIA, UNSPECIFIED ORGANISM (6) Sepsis Code(s): A41.9 - SEPSIS, UNSPECIFIED ORGANISM (7) Hypothyroid Code(s): E03.9 - HYPOTHYROIDISM, UNSPECIFIED Qualifiers: Hypothyroidism type: unspecified Qualified Code(s): E03.9 - Hypothyroidism, unspecified; E03.9 - Hypothyroidism, unspecified; E03.9 - Hypothyroidism, unspecified (8) Thrombocytopenia Code(s): D69.6 - THROMBOCYTOPENIA, UNSPECIFIED (9) Coronary artery disease Code(s): I25.10 - ATHSCL HEART DISEASE OF [place] CORONARY ARTERY W/O ANG PCTRS Qualifiers: Coronary Disease-Associated Artery/Lesion type: [place] artery [place] vs. transplanted heart: [place] heart Associated angina: without angina Qualified Code(s): I25.10 - Atherosclerotic heart disease of [place] coronary artery without angina pectoris; I25.10 - Atherosclerotic heart disease of [place] coronary artery without angina pectoris; I25.10 - Atherosclerotic heart disease of [place] coronary artery without angina pectoris (10) Dementia Code(s): F03.90 - UNSPECIFIED DEMENTIA WITHOUT BEHAVIORAL DISTURBANCE Qualifiers: Dementia type: unspecified type (11) Sarcoidosis Code(s): D86.9 - SARCOIDOSIS, UNSPECIFIED Assessment/Plan ASSESSMENT AND PLAN: Pneumonia clinically improved Sepsis CAD LV Diastolic Dysfunction Paroxysmal Atrial Fibrillation Sarcoidosis Chronic Thrombocytopenia - levaquin - aspiration precautions - DVT prophylaxis - monitor plt ct - chest x-ray DR SUH Problem List - Problems (1) Abnormal chest xray Code(s): R93.8 - ABNORMAL FINDINGS ON DIAGNOSTIC IMAGING OF BODY STRUCTURES (2) Change in mental status Code(s): R41.82 - ALTERED MENTAL STATUS, UNSPECIFIED Qualifiers: Altered mental status type: somnolence Qualified Code(s): R40.0 - Somnolence; R40.0 - Somnolence (3) Hypotension Code(s): I95.9 - HYPOTENSION, UNSPECIFIED Qualifiers: Hypotension type: unspecified hypotension type Qualified Code(s): I95.9 - Hypotension, unspecified; I95.9 - Hypotension, unspecified (4) PAF (paroxysmal atrial fibrillation) Code(s): I48.0 - PAROXYSMAL ATRIAL FIBRILLATION (5) PNA (pneumonia) Code(s): J18.9 - PNEUMONIA, UNSPECIFIED ORGANISM (6) Sepsis Code(s): A41.9 - SEPSIS, UNSPECIFIED ORGANISM (7) Hypothyroid Code(s): E03.9 - HYPOTHYROIDISM, UNSPECIFIED Qualifiers: Hypothyroidism type: unspecified Qualified Code(s): E03.9 - Hypothyroidism, unspecified; E03.9 - Hypothyroidism, unspecified; E03.9 - Hypothyroidism, unspecified (8) Thrombocytopenia Code(s): D69.6 - THROMBOCYTOPENIA, UNSPECIFIED (9) Coronary artery disease Code(s): I25.10 - ATHSCL HEART DISEASE OF [place] CORONARY ARTERY W/O ANG PCTRS Qualifiers: Coronary Disease-Associated Artery/Lesion type: [place] artery [place] vs. transplanted heart: [place] heart Associated angina: without angina Qualified Code(s): I25.10 - Atherosclerotic heart disease of [place] coronary artery without angina pectoris; I25.10 - Atherosclerotic heart disease of [place] coronary artery without angina pectoris; I25.10 - Atherosclerotic heart disease of [place] coronary artery without angina pectoris (10) Dementia Code(s): F03.90 - UNSPECIFIED DEMENTIA WITHOUT BEHAVIORAL DISTURBANCE Qualifiers: Dementia type: unspecified type (11) Sarcoidosis Code(s): D86.9 - SARCOIDOSIS, UNSPECIFIED
[2017-01-07 10:39] LABS: PLATELET ESTIMATE MARKEDLY DECREASED (NORMAL); TOTAL CELLS COUNTED 100
[2017-01-07 10:40] LABS: MYELOCYTE 1 % (0-2)
--- NOTE | 2017-01-07 13:00 | PN ---
Progress Note, Physician History of Present Illness: Pt with dementia, at baseline cannot provide info. Pt seems close to her baseline Pt's COST CONSULTANT at bedside; per her report pt seems close to baseline. - Current Medication List Current Medications: Active Medications Dextrose/Sodium Chloride (D5-Ns -) 1,000 mls @ 50 mls/hr IV ASDIR [facility] Last Admin: 01/05/17 18:38 Dose: Not Given Levofloxacin (Levaquin 750 Mg Premixed Ivpb -) 150 mls @ 100 mls/hr IVPB DAILY [facility] Last Admin: 01/07/17 09:36 Dose: 100 mls/hr Levetiracetam (Keppra Oral Solution -) 400 mg PO BID [facility] Last Admin: 01/07/17 09:36 Dose: 400 mg Metoprolol Tartrate (Lopressor -) 25 mg PO BID [facility] Last Admin: 01/07/17 09:36 Dose: 25 mg Propylthiouracil (Ptu -) 25 mg PO BID [facility] Last Admin: 01/07/17 09:35 Dose: 25 mg - Objective Vital Signs: Vital Signs Temperature 97.9 F 01/07/17 08:01 Pulse Rate 81 01/07/17 10:00 Respiratory Rate 20 01/07/17 10:00 Blood Pressure 114/62 01/07/17 10:00 O2 Sat by Pulse Oximetry (%) 98 01/07/17 10:00 Constitutional: Yes: No Distress, Calm Cardiovascular: Yes: Regular Rate and Rhythm, S1, S2 Respiratory: Yes: Regular, Diminished, Rales (right upper ling landin) Gastrointestinal: Yes: Normal Bowel Sounds, Soft Edema: No Labs: CBC, BMP 01/07/17 05:10 01/07/17 05:10 INR, PTT INR 1.14 (0.82-1.09) 01/06/17 06:45 Fibrinogen 503.0 mg/dL (238-498) H 01/06/17 06:45 - ....Imaging Chest X-ray: Report Reviewed, Image Reviewed Problem List - Problems (1) Hypotension Code(s): I95.9 - HYPOTENSION, UNSPECIFIED Qualifiers: Hypotension type: unspecified hypotension type Qualified Code(s): I95.9 - Hypotension, unspecified; I95.9 - Hypotension, unspecified (2) Hypoxemia Code(s): R09.02 - HYPOXEMIA (3) Change in mental status Code(s): R41.82 - ALTERED MENTAL STATUS, UNSPECIFIED Qualifiers: Altered mental status type: somnolence Qualified Code(s): R40.0 - Somnolence; R40.0 - Somnolence (4) UTI (urinary tract infection) Code(s): N39.0 - URINARY TRACT INFECTION, SITE NOT SPECIFIED Qualifiers: Urinary tract infection type: acute cystitis Hematuria presence: with hematuria Qualified Code(s): N30.01 - Acute cystitis with hematuria; N30.01 - Acute cystitis with hematuria (5) Dementia Code(s): F03.90 - UNSPECIFIED DEMENTIA WITHOUT BEHAVIORAL DISTURBANCE Qualifiers: Dementia type: unspecified type (6) PAF (paroxysmal atrial fibrillation) Code(s): I48.0 - PAROXYSMAL ATRIAL FIBRILLATION (7) Lactic acidosis Code(s): E87.2 - ACIDOSIS (8) Thrombocytopenia Code(s): D69.6 - THROMBOCYTOPENIA, UNSPECIFIED (9) Abnormal chest xray Code(s): R93.8 - ABNORMAL FINDINGS ON DIAGNOSTIC IMAGING OF BODY STRUCTURES (10) Sepsis Code(s): A41.9 - SEPSIS, UNSPECIFIED ORGANISM (11) PNA (pneumonia) Code(s): J18.9 - PNEUMONIA, UNSPECIFIED ORGANISM Assessment/Plan Admitted to Telemetry, now on regular floor Serial CE negative. Cardio, Pulmonary Consults appreciated. UCX + for E Coli. Cont iV abtx. TO monitor Plts,it seems are improving. AM labs, monitor platelets
--- NOTE | 2017-01-07 13:07 | PN ---
Progress Note (short form) - Note Progress Note: pt seen and examined. doesn;t provide hx O/E: Cor: RSR, No murmurs, No gallops Lungs: Clear Abd: Soft, Normal bowel sounds, No organomegaly Ext:contracted Skin: No rashes, Integument intact Temp Pulse Resp BP Pulse Ox 98 F 88 20 126/50 97 01/06/17 10:00 01/06/17 10:00 01/06/17 10:00 01/06/17 10:00 01/06/17 09:00 CBC, BMP 01/06/17 06:45 Current Medications Generic Name Dose Route Start Last Admin Trade Name Freq PRN Reason Stop Dose Admin Dextrose/Sodium Chloride 1,000 mls @ 50 mls/hr 01/03/17 18:15 01/05/17 18:38 D5-Ns - IV Not Given ASDIR PAULINE Levofloxacin 150 mls @ 100 mls/hr 01/04/17 14:04 01/06/17 09:01 Levaquin 750 Mg Premixed Ivpb - IVPB 100 mls/hr DAILY [facility] Administration Levetiracetam 400 mg 01/03/17 22:00 01/06/17 09:01 Keppra Oral Solution - PO 400 mg BID [facility] Administration Metoprolol Tartrate 25 mg 01/04/17 10:00 01/06/17 09:01 Lopressor - PO 25 mg BID [facility] Administration Propylthiouracil 25 mg 01/03/17 22:00 01/06/17 09:02 Ptu - PO 25 mg BID [facility] Administration 86 y/o patient with HTN, CHF, sarcoid, hyperthyroidism, dementia( advanced) admitted with possible aspiration , RUL pneuonia, UTI On levaquin thus far w/u unrevealing, will f/u on the spl path reports. no transfusion for now, daily cbc, platelets likely to come to baseline, on the rise now. will continue to monitor.
[2017-01-08 07:59] LABS: MCHC 32.8 g/dl (32.0-36.0); MEAN CELL VOLUME 91.4 fl (80-96); PLATELET COUNT 53 K/MM3 (134-434); RDW 12.8 % (11.6-15.6); WHITE BLOOD COUNT 4.4 K/mm3 (4.0-10.0)
[2017-01-08 08:20] LABS: BASOPHIL 0.2 % (0-2.0); EOSINOPHIL 1.3 % (0-4.5)
[2017-01-08 08:35] LABS: ALBUMIN 2.9 g/dl (3.4-5.0); ANION GAP 8 (8-16); BILIRUBIN,TOTAL 0.4 mg/dL (0.2-1.0); CALCIUM 8.4 mg/dL (8.5-10.1); CO2 26 mmol/L (21-32); CREATININE 0.8 mg/dL (0.55-1.02); GLUCOSE,RANDOM 104 mg/dL (74-106); SGOT/AST 12 U/L (15-37); SGPT/ALT 16 U/L (12-78); TOT PROT 6.5 g/dl (6.4-8.2)
[2017-01-08 08:36] LABS: ALK PHOS 64 U/L (45-117)
[2017-01-08] MEDS ORDERED: PT OWN MED DRAWER 7, Y5N ONE (09:09)
--- NOTE | 2017-01-08 09:40 | PN ---
Progress Note, Physician History of Present Illness: Mental status has improved to baseline. Remains afebrile. - Current Medication List Current Medications: Active Medications Levofloxacin (Levaquin 750 Mg Premixed Ivpb -) 150 mls @ 100 mls/hr IVPB [facility]ILY [facility] Last Admin: 01/07/17 09:36 Dose: 100 mls/hr Levetiracetam (Keppra Oral Solution -) 400 mg PO BID [facility] Last Admin: 01/07/17 21:55 Dose: 400 mg Metoprolol Tartrate (Lopressor -) 25 mg PO BID [facility] Last Admin: 01/07/17 21:55 Dose: 25 mg Propylthiouracil (Ptu -) 25 mg PO BID [facility] Last Admin: 01/07/17 21:54 Dose: 25 mg - Objective Vital Signs: Vital Signs Temperature 98.5 F 01/08/17 05:54 Pulse Rate 77 01/08/17 05:54 Respiratory Rate 18 01/08/17 05:54 Blood Pressure 117/63 01/08/17 05:54 O2 Sat by Pulse Oximetry (%) 98 01/07/17 21:00 Constitutional: Yes: No Distress, Calm, Thin Neck: Yes: Supple Cardiovascular: Yes: Regular Rate and Rhythm Respiratory: Yes: Regular, Diminished, On Nasal O2 Gastrointestinal: Yes: Normal Bowel Sounds, Soft Edema: No Labs: CBC, BMP 01/08/17 07:00 01/08/17 07:00 INR, PTT INR 1.14 (0.82-1.09) 01/06/17 06:45 Fibrinogen 503.0 mg/dL (238-498) H 01/06/17 06:45 - ....Imaging Chest X-ray: Report Reviewed (RUL infiltrate and ATX) Problem List - Problems (1) Change in mental status Code(s): R41.82 - ALTERED MENTAL STATUS, UNSPECIFIED Qualifiers: Altered mental status type: somnolence Qualified Code(s): R40.0 - Somnolence; R40.0 - Somnolence (2) Thrombocytopenia Code(s): D69.6 - THROMBOCYTOPENIA, UNSPECIFIED (3) Atrial fibrillation Code(s): I48.91 - UNSPECIFIED ATRIAL FIBRILLATION Qualifiers: Atrial fibrillation type: paroxysmal Qualified Code(s): I48.0 - Paroxysmal atrial fibrillation; I48.0 - Paroxysmal atrial fibrillation; I48.0 - Paroxysmal atrial fibrillation; I48.0 - Paroxysmal atrial fibrillation (4) Coronary artery disease Code(s): I25.10 - ATHSCL HEART DISEASE OF [place] CORONARY ARTERY W/O ANG PCTRS Qualifiers: Coronary Disease-Associated Artery/Lesion type: [place] artery [place] vs. transplanted heart: [place] heart Associated angina: without angina Qualified Code(s): I25.10 - Atherosclerotic heart disease of [place] coronary artery without angina pectoris; I25.10 - Atherosclerotic heart disease of [place] coronary artery without angina pectoris; I25.10 - Atherosclerotic heart disease of [place] coronary artery without angina pectoris (5) Dementia Code(s): F03.90 - UNSPECIFIED DEMENTIA WITHOUT BEHAVIORAL DISTURBANCE Qualifiers: Dementia type: unspecified type (6) Sarcoidosis Code(s): D86.9 - SARCOIDOSIS, UNSPECIFIED (7) Lactic acidosis Code(s): E87.2 - ACIDOSIS (8) UTI (urinary tract infection) Code(s): N39.0 - URINARY TRACT INFECTION, SITE NOT SPECIFIED Qualifiers: Urinary tract infection type: acute cystitis Hematuria presence: with hematuria Qualified Code(s): N30.01 - Acute cystitis with hematuria; N30.01 - Acute cystitis with hematuria Assessment/Plan 11/04/2014 Echocardiogram shows normal LV fxn with mild MR, TR 1. Pneumonia, e. coli UTI, sepsis 2. History of neurocardiogenic syncope 3. CAD, angina pectoris 4. LV diastolic dysfunction with history of failure 5. Paroxysmal atrial fibrillation now in sinus rhythm on no anticoagulation due to chronic thrombocytopenia 6. Hypertension 7. Hyperthyroidism 8. Sarcoidosis 9. Organic brain syndrome/Dementia 10. Chronic thrombocytopenia ?ITP vs liver disease vs MDS versus meds ? propylthiouracil - improving 11. Seizure d/o PLAN: 1. Complete antibiotic course 2. Continue Lopressor 25 bid 3. D/c subcutaneous heparin given thrombocytopenia
[2017-01-08] MEDS: levETIRAcetam 500 MG/5 ML ORAL SOLUTION (UNIT-DOSE CUPS) PO SCH (11:02)
[2017-01-08] MEDS: METOPROLOL TARTRATE 25 MG TABLET (FP) PO SCH (11:03)
[2017-01-08] MEDS: LEVOFLOXACIN 750 MG IVPB 150 ML IVPB SCH (11:04)
[2017-01-08] MEDS: PROPYLTHIOURACIL 50 MG TABLET (UD) PO SCH (11:04)
--- NOTE | 2017-01-08 12:22 | DS ---
Physical Examination Vital Signs: Vital Signs Temperature 98.5 F 01/08/17 05:54 Pulse Rate 77 01/08/17 05:54 Respiratory Rate 18 01/08/17 05:54 Blood Pressure 117/63 01/08/17 05:54 O2 Sat by Pulse Oximetry (%) 98 01/07/17 21:00 Findings/Remarks: Pt is not able to provide info secondary to dementia. Pt seems to be at baseline; MER[employer]ERS AND ACQUISITIONS MANAGER at bedside, pt eating w/o SOB, cough, discomfort. Constitutional: Yes: No Distress, Calm Cardiovascular: Yes: Regular Rate and Rhythm, S1, S2 Respiratory: Yes: Regular, CTA Bilaterally, Diminished (Pt doesn't follows commands to take deep inspiration), Other (coarse BS) Gastrointestinal: Yes: Normal Bowel Sounds, Soft Edema: No Neurological: Yes: Alert Labs: CBC, BMP 01/08/17 07:00 01/08/17 07:00 Discharge Summary Reason For Visit: AMS Current Active Problems Abnormal chest xray (Acute) Change in mental status (Acute) Hypotension (Acute) Hypoxemia (Acute) Lactic acidosis (Acute) PAF (paroxysmal atrial fibrillation) (Acute) PNA (pneumonia) (Acute) Sepsis (Acute) Procedures: Principal: CXR Hospital Course: Pt was transferred from [facility] after started suddenly to sweat profusely , drop her BP( SBP 90 -> 88) and O2 sat on RA ( 88%); Pt was admitted to Telemetry, ANd monitor for cardiac events; CE were negative and no significant arrhythmia was noticed. Pt was started on IV abtx for possible UTI; later UCx came + for E Coli. Pt's CXR was c/w RUL PNA. Also pt's platelets drop (to 25K), now they improved. Pt was seen in consult by Cardio (Dr. Ochoa), Pulmonary (Dr Cha / [place]), Heme (Dr. Guzman/ [place]). Pt to DC'ed to [place] with PO abtx. Condition: Fair - Instructions Diet, Activity, Other Instructions: Resume diet. CBC, BMP on and Referrals: Tripp Zarate MD [Primary Care Provider] - Disposition: [facility] - Home Medications Comprehensive Discharge Medication List: Ambulatory Orders this list might NOT be accurate Acetaminophen [Acetaminophen Extra Strength] 500 mg PO Q6H PRN #0 tablet Multivitamin [Multivitamins] 1 each PO AM #0 capsule 09/11/11 Raloxifene HCl [Evista] 60 mg PO DAILY #0 tablet 09/11/11 Cyanocobalamin Vit B-12 Inj. [Vitamin B12 Injection -] 1,000 mcg IM PRN #0 vial 11/04/14 Rivastigmine Tartrate [Rivastigmine] 1.5 mg PO BID #0 capsule 11/04/14 Metoprolol Succinate [Toprol XL -] 25 mg PO BID #60 tab.sr.24h 04/03/15 Propylthiouracil 25 mg PO BID #60 tablet 04/03/15 Risperidone [Risperdal -] 0.25 mg PO DAILY tablet 04/03/15 Levetiracetam [Keppra -] 400 mg PO BID 05/17/15 Lisinopril 10 mg PO DAILY 05/17/15 Pregabalin [Lyrica -] 75 mg PO Q12H 05/17/15 Vitamin C 500 mg PO DAILY 05/01/16 Zinc Sulfate 220 mg PO DAILY 05/01/16
--- NOTE | 2017-01-08 12:42 | PN ---
Progress Note (short form) - Note Progress Note: Awake. Remains afebrile and in NAD. No acute events overnight. Intake & Output 01/05/17 01/06/17 01/07/17 01/08/17 23:59 23:59 23:59 23:59 Intake Total 1700 250 220 Output Total 1200 Balance 500 250 220 Last Vital Signs Temp Pulse Resp BP Pulse Ox 98.5 F 77 18 117/63 98 01/08/17 05:54 01/08/17 05:54 01/08/17 05:54 01/08/17 05:54 01/07/17 21:00 Active Medications Levofloxacin (Levaquin 750 Mg Premixed Ivpb -) 150 mls @ 100 mls/hr IVPB DAILY [facility] Last Admin: 01/08/17 11:04 Dose: 100 mls/hr Levetiracetam (Keppra Oral Solution -) 400 mg PO BID [facility] Last Admin: 01/08/17 11:02 Dose: 400 mg Metoprolol Tartrate (Lopressor -) 25 mg PO BID [facility] Last Admin: 01/08/17 11:03 Dose: Not Given Propylthiouracil (Ptu -) 25 mg PO BID [facility] Last Admin: 01/08/17 11:04 Dose: 25 mg Constitutional: Yes: NAD, non-verbal Eyes: Yes: WNL HENT: Yes: WNL Neck: Yes: WNL Cardiovascular: Yes: Pulse Irregular, S1, S2 Respiratory: Yes: Scattered rhonchi Right > left Gastrointestinal: Yes: Normal Bowel Sounds, Soft Extremities: Yes: WNL Edema: No Labs: Laboratory Results - last 24 hr 01/08/17 01/08/17 07:00 07:00 WBC 4.4 RBC 3.83 Hgb 11.5 Hct 35.0 MCV 91.4 MCH 30.0 MCHC 32.8 RDW 12.8 Plt Count 53 L D MPV 11.0 Total Counted Cancelled Neutrophils % 32.0 L D Neutrophils % (Manual) Cancelled Band Neuts % (Manual) Cancelled Lymphocytes % 44.8 H D Lymphocytes % (Manual) Cancelled Monocytes % 21.7 H Monocytes % (Manual) Cancelled Eosinophils % 1.3 D Eosinophils % (Manual) Cancelled Basophils % 0.2 Basophils % (Manual) Cancelled Myelocytes % (Man) Cancelled Promyelocytes % (Man) Cancelled Blast Cells % (Manual) Cancelled Nucleated RBC % Cancelled Plasma Cells Cancelled Smudge Cells Cancelled Other Cell Type Cancelled Sodium 138 Potassium 4.1 Chloride 104 Carbon Dioxide 26 Anion Gap 8 BUN 15 D Creatinine 0.8 Creat Clearance w eGFR > 60 Random Glucose 104 Calcium 8.4 L Total Bilirubin 0.4 AST 12 L ALT 16 Alkaline Phosphatase 64 Total Protein 6.5 Albumin 2.9 L Problem List - Problems (1) Abnormal chest xray Code(s): R93.8 - ABNORMAL FINDINGS ON DIAGNOSTIC IMAGING OF BODY STRUCTURES (2) Change in mental status Code(s): R41.82 - ALTERED MENTAL STATUS, UNSPECIFIED Qualifiers: Altered mental status type: somnolence Qualified Code(s): R40.0 - Somnolence; R40.0 - Somnolence (3) Hypotension Code(s): I95.9 - HYPOTENSION, UNSPECIFIED Qualifiers: Hypotension type: unspecified hypotension type Qualified Code(s): I95.9 - Hypotension, unspecified; I95.9 - Hypotension, unspecified (4) PAF (paroxysmal atrial fibrillation) Code(s): I48.0 - PAROXYSMAL ATRIAL FIBRILLATION (5) PNA (pneumonia) Code(s): J18.9 - PNEUMONIA, UNSPECIFIED ORGANISM (6) Sepsis Code(s): A41.9 - SEPSIS, UNSPECIFIED ORGANISM (7) Hypothyroid Code(s): E03.9 - HYPOTHYROIDISM, UNSPECIFIED Qualifiers: Hypothyroidism type: unspecified Qualified Code(s): E03.9 - Hypothyroidism, unspecified; E03.9 - Hypothyroidism, unspecified; E03.9 - Hypothyroidism, unspecified (8) Thrombocytopenia Code(s): D69.6 - THROMBOCYTOPENIA, UNSPECIFIED (9) Coronary artery disease Code(s): I25.10 - ATHSCL HEART DISEASE OF [place] CORONARY ARTERY W/O ANG PCTRS Qualifiers: Coronary Disease-Associated Artery/Lesion type: [place] artery [place] vs. transplanted heart: [place] heart Associated angina: without angina Qualified Code(s): I25.10 - Atherosclerotic heart disease of [place] coronary artery without angina pectoris; I25.10 - Atherosclerotic heart disease of [place] coronary artery without angina pectoris; I25.10 - Atherosclerotic heart disease of [place] coronary artery without angina pectoris (10) Dementia Code(s): F03.90 - UNSPECIFIED DEMENTIA WITHOUT BEHAVIORAL DISTURBANCE Qualifiers: Dementia type: unspecified type (11) Sarcoidosis Code(s): D86.9 - SARCOIDOSIS, UNSPECIFIED Assessment/Plan ASSESSMENT AND PLAN: Pneumonia clinically improved Sepsis CAD LV Diastolic Dysfunction Paroxysmal Atrial Fibrillation Sarcoidosis Chronic Thrombocytopenia Levaquin Aspiration precautions VTE No Pulmonary contraindication for D/C Dr Koch
[2017-01-08 14:43] VITALS: BP 105/59; PULSE 81; TEMP 98.3
[2017-01-09] MEDS ORDERED: LEVOFLOXACIN 250 MG TABLET (FP) PO SCH (06:00)
[2017-01-09] MEDS ORDERED: LEVOFLOXACIN 750 MG TABLET PO SCH (10:00)
--- NOTE | 2017-01-09 17:26 | PATH ---
Surgical Pathology Report Patient Name: HERBERT ROCK Med. Rec. #: [id number] /Age/Gender: 1930 (Age: 86) / F Account: [id number] Location: [facility] MED/SURG Taken: 01/05/2017 Received: 01/08/2017 Reported: 01/09/2017 Physicians: Tanja Momin M.D. Specimen(s) Received PERIPHERAL BLOOD Clinical History Low platelets Final Diagnosis PERIPHERAL BLOOD: FLOW CYTOMETRY performed and interpreted at [facility], [place], [place] ([id number]) shows the following: INTERPRETATION: Monocytosis, 31% of total events There is no evidence of B or T-cell proliferative disorders or increased myeloblasts. Comment: The findings are nonspecific. The differential diagnosis includes reactive monocytic expansion, as well as myeloid neoplasms (such as chronic myelomonocytic leukemia, CMML). Clinical and laboratory correlation is essential. Additional genetic tests are pending, and a report will follow. Electronically Signed Paulino Lyman M.D. Addendum Reported: 01/10/2017 Addendum Diagnosis Hematologic FISH Report performed and interpreted at [facility] in [place], [place] ([id number]) shows the following. INTERPRETATION: No evidence of deletion 5q or monosomy 5 is present. No evidence of deletion 7q or monosomy 7 is present. No evidence of trisomy 8 (+8) is present. No evidence of deletion 13q14 is present. No evidence of a rearrangement of 11q23. No evidence of a deletion of the p53 (17p13) locus. No evidence of deletion 20q12 is present. Comments: The study is negative for many of the most common recurrent genetic abnormalities in Myelodysplastic Syndrome. Correlation with pending cytogenetics ([id number]) is recommended. Paulino Lyman M.D. Gross Description Received are 2 green top tubes of blood which are sent to [facility]. /01/08/201701/08/2017
[2017-01-10 10:16] LABS: HEMATOCRIT 32.6 % (34.0-46.6)
== END 2017-01-08 16:34 | DRG 871 ==
LOC: JER 13:31 → JERBED 16:09 → J4W 17:40 → J7W 01-07 12:10
PROVIDERS: ADMIT Internal Medicine; ATTEND Internal Medicine
DX: A41.9 Sepsis, unspecified organism (principal); J18.9 Pneumonia, unspecified organism; I13.0 Hypertensive heart and chronic kidney disease with heart failure and stage 1 through stage 4 chronic kidney disease, or unspecified chronic kidney disease; I50.30 Unspecified diastolic (congestive) heart failure; E87.2 Acidosis; N39.0 Urinary tract infection, site not specified; I25.119 Atherosclerotic heart disease of native coronary artery with unspecified angina pectoris; F03.90 Unspecified dementia, unspecified severity, without behavioral disturbance, psychotic disturbance, mood disturbance, and anxiety; I48.0 Paroxysmal atrial fibrillation; D86.9 Sarcoidosis, unspecified; N18.9 Chronic kidney disease, unspecified; B96.20 Unspecified Escherichia coli [E. coli] as the cause of diseases classified elsewhere; F09 Unspecified mental disorder due to known physiological condition; D69.6 Thrombocytopenia, unspecified
CPT/HCPCS: 36415; 70450-TC; 71010-TC; 80053; 81003; 81015; 82607; 82747; 82803; 83605; 83615; 84439; 84443; 84484; 85014; 85025; 85027; 85384; 85610; 85730; 86850; 86900; 86901; 87040; 87086; 87186; 88300-TC; 90688; 93005; 93010; 99285-25; J1644